=== PATIENT | female | born 1960 | race Caucasian/White ===

== ENCOUNTER 2017-06-26 08:50 | Inpatient (IN) | payer BC ==
[~2017-06-26] VITALS: Ht 167.6 cm; Wt 54.5 kg
[2017-06-26] VITALS (14 sets, daily range): BP systolic 112–190; BP diastolic 69–108; PULSE 60–75; RESP 16–20; TEMP 97.4–98.8; O2SAT 91–98
[2017-06-26 09:33] LABS: AUTOMATED NEUTROPHIL # 3.1 TH/MM3 (1.8-7.7); BASOPHIL # 0.1 TH/MM3 (0-0.2); BASOPHIL % 1.3 % (0.0-2.0); EOSINOPHIL # 0.3 TH/MM3 (0-0.4); EOSINOPHIL % 6.2 % (0.0-4.0); HEMOGLOBIN 14.7 GM/DL (11.6-15.3); LYMPH % 26.9 % (9.0-44.0); LYMPHOCYTE # 1.4 TH/MM3 (1.0-4.8); MEAN CELL VOLUME 94.5 FL (80.0-100.0); MEAN CORPUSCULAR HEMOGLOBIN 31.6 PG (27.0-34.0); MEAN CORPUSCULAR HGB CONC 33.4 % (32.0-36.0); MEAN PLATELET VOLUME 8.3 FL (7.0-11.0); MONO % 8.3 % (0.0-8.0); MONOCYTE # 0.4 TH/MM3 (0-0.9); NEUT % 57.3 % (16.0-70.0); PLATELET COUNT 231 TH/MM3 (150-450); RED BLOOD COUNT 4.66 MIL/MM3 (4.00-5.30); RED CELL DISTRIBUTION WIDTH 13.6 % (11.6-17.2); WHITE BLOOD COUNT 5.3 TH/MM3 (4.0-11.0)
[2017-06-26] MEDS ORDERED: LIDOCAINE 1%/EPINEPHrine 1:100,000 SOLN 20 ML VIAL ONE ×2 (09:41)
[2017-06-26 09:45] LABS: INTERNATIONAL NORMALIZED RATIO 0.9 RATIO; PROTHROMBIN TIME - PATIENT 9.8 SEC (9.8-11.6)
[2017-06-26] MEDS: SODIUM CHLOR 0.9% 1000 ML IV SCH ×2 (10:00)
[2017-06-26] MEDS ORDERED: MIDAZOLAM HCL 2 MG/2 ML VIAL ONE ×4 (10:07→15:25)
--- NOTE | 2017-06-26 11:16 | RADRPT ---
EXAM DATE/TIME: 06/26/2017 10:16 [facility] COMPARISON: No previous studies available for comparison. INDICATIONS : Right lung mass. SEDATION TIME: 30 minutes BIOPSY SITE: Right lung MEDICATION(S): 1.) 2 mg midazolam (Versed) IV 2.) 100 mcg fentanyl (Sublimaze) IV DEVICE(S): 1.) 20 gauge Temno core biopsy needle MEDICAL HISTORY : None. SURGICAL HISTORY : section. ENCOUNTER: Initial ACUITY: 1 day PAIN SCORE: 0/10 LOCATION: Right lung A total of one core specimen(s) were obtained and sent to the laboratory for pathologic evaluation. PROCEDURE: 1. CT guided lung biopsy. 2. Conscious sedation with continuous EKG and oximetry monitoring. 3. EKG and oximetry remained stable throughout the procedure. Prior to the procedure informed consent was obtained. Any appropriate prior imaging studies were rev iewed. Using automated exposure control and adjustment of the mA and/or kV according to patient size, radiation dose was kept as low as reasonably achievable to obtain optimal diagnostic quality images. DICOM format image data is available electronically for review and comparison. The site was prepped in a sterile fashion. Full sterile technique was used, including cap, mask, elieser rile gloves and gown and a large sterile sheet. Hand hygiene and 2% chlorhexidine and/or betadine/al cohol prep was utilized per protocol for cutaneous antisepsis. The skin and subcutaneous tissues wer e infiltrated with local anesthetic solution. With CT guidance the previously identified target was localized. Biopsy was performed using the presc ribed needle as above. Adequate hemostasis was obtained with compression at the puncture site. Follow-up CT scan reveals a small pneumothorax. Conscious sedation was performed with the prescribed dosages and duration as above in the presence of an independent trained radiology nurse to assist in the monitoring of the patient. EKG and oximetry remained stable throughout the procedure. The patient tolerated the procedure well and there were no complications. The patient was sent to Radiology Outpatient Unit in stable condition. CONCLUSION: Successful CT guided biopsy. Kashif Freitas MD on June 26, 2017 at 11:13 Board Certified Radiologist. This report was verified electronically.
--- NOTE | 2017-06-26 11:20 | RADRPT ---
EXAM DATE/TIME: 06/26/2017 10:06 [facility] COMPARISON: No previous studies available for comparison. INDICATIONS : Post right lung biopsy. Evaluate for pneumothorax. MEDICAL HISTORY : None. SURGICAL HISTORY : None. ENCOUNTER: Initial ACUITY: 1 day PAIN SCORE: 0/10 LOCATION: Right chest FINDINGS: There is a 1.5 cm right apical pneumothorax. Right mid lung field nodule is again noted laterally. The heart is normal. The lungs are otherwise clear. CONCLUSION: 1. A 1.5 cm right apical pneumothorax. 2. Right lateral mid lung field nodule. Kashif Freitas MD on June 26, 2017 at 11:11 Board Certified Radiologist. This report was verified electronically.
--- NOTE | 2017-06-26 13:02 | RADRPT ---
EXAM DATE/TIME: 06/26/2017 12:50 [facility] COMPARISON: CHEST EXPIRATION ONLY, June 26, 2017, 10:06. INDICATIONS : Post Lung Biopsy MEDICAL HISTORY : None. SURGICAL HISTORY : None. ENCOUNTER: Subsequent ACUITY: 1 day PAIN SCORE: 0/10 LOCATION: Bilateral chest FINDINGS: There is a persistent small stab le right apical pneumothorax measuring 15 mm. The heart is stable. The right lung nodule is stable. CONCLUSION: 1. Stable small right apical pneumothorax measuring 15 mm. Kashif Freitas MD on June 26, 2017 at 12:53 Board Certified Radiologist. This report was verified electronically.
--- NOTE | 2017-06-26 15:05 | RADRPT ---
EXAM DATE/TIME: 06/26/2017 14:36 [facility] COMPARISON: CT NEEDLE BIOPSY LUNG, RIGHT, June 26, 2017, 10:16. CHEST EXPIRATION ONLY, June 26, 2017, 12:5 0. INDICATIONS : Stat post lung biopsy right side. MEDICAL HISTORY : None. SURGICAL HISTORY : None. ENCOUNTER: Initial ACUITY: 1 day PAIN SCORE: 0/10 LOCATION: Right chest FINDINGS: 3.6 and the right pneumothorax. Left lung is clear. The heart and pulmonary vascularity are normal. The portion of the bony skeleton visualized is unremarkable. CONCLUSION: 3.6 and meter right pneumothorax. Kostas Avila MD FACR on June 26, 2017 at 15:02 Board Certified Radiologist. This report was verified electronically.
--- NOTE | 2017-06-26 16:02 | PD.RAD ---
Post Procedure Progress Note Pre Procedure Diagnosis: (1) Lung mass Post Procedure Diagnosis: (1) Lung mass Procedure Date: Jun 26, 2017 Supervising Radiologist: Ethan Cm Proceduralist/Assist: Arsalan Madden, RT(R), José Carter RT(R), Aura Guillen RT(R) Anesthesia: Conscious Sedation Plan of Activity Patient to Unit: Nursing Unit Patient Condition: Good See PACS Report for procedural detail/treatment Drainage Procedure Procedure 1 Imaging Guidance: Fluoroscopy Side: Right Procedure Type: Chest Tube Non-Tunneled Procedure: Placement Drainage: Pleurovac Ethan Cm MD Jun 26, 2017 16:02
--- NOTE | 2017-06-26 16:36 | RADRPT ---
EXAM DATE/TIME: 06/26/2017 15:25 [facility] COMPARISON: CHEST EXPIRATION ONLY, June 26, 2017, 16:11. INDICATIONS : Patient presents with right side pneumothorax in need of chest tube placement. MEDICAL HISTORY : Carcinoma of right breast Hx of smoking SURGICAL HISTORY : Right lung biopsy ENCOUNTER: Initial ACUITY: 1 day PAIN SCORE: 0/10 LOCATION: N/A FLUORO TIME: 0.8 minutes IMAGE SERIES: 0 SEDATION TIME: 30 minutes MEDICATION(S): 1.) 2 mg midazolam (Versed) IV 2.) 100 mcg fentanyl (Sublimaze) IV DEVICE(S): 1.) 10 [place] non-locking catheter 30CM GAYLE PROCEDURE : 1. Fluoroscopically guided chest tube placement. 2. Conscious sedation with continuous EKG and oximetry monitoring. The risks, benefits and alternatives to the procedure were explained and verbal and written consent w as obtained. The site was prepped in sterile fashion. Full sterile technique was used, including ca p, mask, sterile gloves and gown and a large sterile sheet. Hand hygiene and 2% chlorhexidine and/or betadine/alcohol prep was utilized per protocol for cutaneous antisepsis. The skin and subcutaneous tissues were infiltrated with local anesthetic solution. With fluoroscopic guidance the chest was punctured between the first and second interspace and the pr escribed catheter was placed in the lung apex. Wall suction was applied. Post procedure images demon strate satisfactory position of the tube. The catheter was sutured in place and a Percu-Stay was zoe lied. Conscious sedation was performed with the prescribed dosages and duration as above in the presence of an independent trained radiology nurse to assist in the monitoring of the patient. EKG and oximetry remained stable throughout the procedure. The patient tolerated the procedure well and there were n o complications. The patient was sent to post anesthesia recovery in stable condition. CONCLUSION: Uncomplicated chest tube placement as above. Ethan Cm MD on June 26, 2017 at 16:34 Board Certified Radiologist. This report was verified electronically.
--- NOTE | 2017-06-26 16:37 | RADRPT ---
EXAM DATE/TIME: 06/26/2017 16:11 [facility] COMPARISON: CHEST EXPIRATION ONLY, June 26, 2017, 14:36. INDICATIONS : Post chest tube placement. MEDICAL HISTORY : None. SURGICAL HISTORY : None. ENCOUNTER: Initial ACUITY: 1 day PAIN SCORE: 2/10 LOCATION: Right chest FINDINGS: Chest tube in good position right lung. There is no pneumothorax. Left lung is clear. CONCLUSION: Chest tube in good position without pneumothorax. Kostas Avila MD FACR on June 26, 2017 at 16:22 Board Certified Radiologist. This report was verified electronically.
[2017-06-27] VITALS (9 sets, daily range): BP systolic 118–159; BP diastolic 71–91; PULSE 61–69; RESP 16–20; TEMP 97.6–99.6; O2SAT 96–97
--- NOTE | 2017-06-27 09:14 | RADRPT ---
EXAM DATE/TIME: 06/27/2017 08:39 [place] Corrected on: June 27, 2017; Updated Report time [facility] COMPARISON: CHEST EXPIRATION ONLY, June 26, 2017, 14:36. CHEST EXPIRATION ONLY, June 26, 2017, 16:11. INDICATIONS : Evaluate for pneumothorax. MEDICAL HISTORY : None. SURGICAL HISTORY : None. ENCOUNTER: Subsequent ACUITY: 1 day PAIN SCORE: 0/10 LOCATION: Bilateral chest FINDINGS: Right chest drainage catheter remains projected in the right apex. There has been reaccumulation the right apical pneumothorax, now measuring 3.1 cm. Stable small opacity lateral right mid chest. Lef t lung is clear carotids normal size. Both hemidiaphragms well delineated. CONCLUSION: Reaccumulation of right apical pneumothorax with chest drainage catheter unchanged position of the ri ght apex. Jason Hamilton MD on June 27, 2017 at 9:10 Board Certified Radiologist. This report was verified electronically.
[2017-06-27] MEDS ORDERED: BISACODYL 10 MG SUPP RECTAL PRN ×2 (10:15)
[2017-06-27] MEDS ORDERED: SODIUM CHLORIDE 0.9% FLUSH 10 ML FLUSH IV FLUSH PRN ×2 (10:15)
[2017-06-27] MEDS ORDERED: SENNOSIDES 8.6 MG TAB PO PRN ×2 (10:15)
[2017-06-27] MEDS ORDERED: ONDANSETRON HCL 4 MG/2 ML VIAL IVP PRN ×2 (10:15)
[2017-06-27] MEDS ORDERED: NALOXONE HCL 0.4 MG/ML AMP IV PUSH PRN ×2 (10:15)
[2017-06-27] MEDS ORDERED: MAGNESIUM HYDROXIDE SUSP 30 ML CUP PO PRN ×2 (10:15)
[2017-06-27] MEDS ORDERED: ACETAMINOPHEN 325 MG TAB PO PRN ×2 (10:15)
[2017-06-27] MEDS ORDERED: LACTULOSE SYRUP 20 GM/30 ML CUP PO PRN ×2 (10:15)
[2017-06-27] MEDS: SODIUM CHLOR 0.9% 1000 ML IV SCH ×2 (11:00)
[2017-06-27 13:17] LABS: AUTOMATED NEUTROPHIL # 3.2 TH/MM3 (1.8-7.7); BASOPHIL # 0.1 TH/MM3 (0-0.2); BASOPHIL % 1.2 % (0.0-2.0); EOSINOPHIL # 0.3 TH/MM3 (0-0.4); HEMATOCRIT 43.7 % (35.0-46.0); HEMOGLOBIN 14.5 GM/DL (11.6-15.3); LYMPH % 26.3 % (9.0-44.0); LYMPHOCYTE # 1.4 TH/MM3 (1.0-4.8); MEAN CELL VOLUME 94.7 FL (80.0-100.0); MEAN CORPUSCULAR HEMOGLOBIN 31.5 PG (27.0-34.0); MEAN CORPUSCULAR HGB CONC 33.3 % (32.0-36.0); MEAN PLATELET VOLUME 8.6 FL (7.0-11.0); MONO % 7.5 % (0.0-8.0); MONOCYTE # 0.4 TH/MM3 (0-0.9); PLATELET COUNT 225 TH/MM3 (150-450); RED BLOOD COUNT 4.61 MIL/MM3 (4.00-5.30); RED CELL DISTRIBUTION WIDTH 13.4 % (11.6-17.2); WHITE BLOOD COUNT 5.3 TH/MM3 (4.0-11.0)
--- NOTE | 2017-06-27 13:25 | PD.CONS ---
HPI Service [facility] Hospitalists Consult Requested By David Patricia Reason for Consult Medical management Primary Care Physician Kostas Izaguirre DO Diagnoses: (1) Pneumothorax after biopsy (2) Lung mass History of Present Illness Written by Everett Basurto PA-C acting as scribe for Dr. Jamin Bacon on 06/27/17 at 13:24. Ms. Rodney is 57 yo, with history of breast cancer diagnosed in April,. She had no significant medical history. Ms. Rodney underwent lung biopsy on 06/26/17 and subsequently developed a pneumothorax of the right lung; a chest tube was placed. Pt was hospitalized and the hospitalist team was consulted. At time of interview, Pt was resting comfortably. She reported she was without chest pain, shortness of breath, or difficulty breathing. She denied fever, malaise,nausea, vomiting, diarrhea. She spoke of ambulating "to go to the bathroom" ("taking my tube with me"), and denied difficulty with bowel/bladder habits. Weight loss was also denied; she did say she had a decreased appetite "since I've been here." A 10 point ROS was conducted and,except as noted above was negative. Review of Systems Constitutional: DENIES: Diaphoretic episodes, Fatigue, Fever, Weight gain, Weight loss Ears, nose, mouth, throat: DENIES: Vertigo Respiratory: DENIES: Cough, Shortness of breath Cardiovascular: DENIES: Chest pain, Palpitations Gastrointestinal: DENIES: Abdominal pain, Black stools Musculoskeletal: DENIES: Joint pain, Muscle aches Hematologic/lymphatic: DENIES: Lymphadenopathy Neurologic: DENIES: Abnormal gait Psychiatric: DENIES: Anxiety, Confusion Except as stated in HPI: all other systems reviewed are Neg Past Family Social History Allergies: Coded Allergies: No Known Allergies (Verified Allergy, Unknown, 06/26/17) Past Medical History Pt denied having any significant medical history other than her recent diagnosis for breast cancer. Past Surgical History Pt endorsed having undergone (x2). Reported Medications Reported Meds & Active Scripts Active No Active Prescriptions or Reported Medications Active Ordered Medications Current Medications Medications (Trade) Dose Ordered Sig/Latrice Route Start Time Stop Time Status Last Admin Sodium Chloride 1,000 ml @ 30 mls/hr Q24H IV 06/26/17 11:00 06/26/17 10:00 (NS Flush) 2 ml UNSCH PRN IV FLUSH 06/27/17 10:15 (NS Flush) 2 ml BID IV FLUSH 06/27/17 21:00 (Tylenol) 650 mg Q4H PRN PO 06/27/17 10:15 (Zofran Inj) 4 mg Q6H PRN IVP 06/27/17 10:15 (Ambien) 5 mg HS PRN PO 06/27/17 21:00 (Narcan Inj) 0.4 mg UNSCH PRN IV PUSH 06/27/17 10:15 (Valarie-Colace) 1 tab BID PO 06/27/17 21:00 (Milk Of Magnesia Liq) 30 ml Q12H PRN PO 06/27/17 10:15 (Senokot) 17.2 mg Q12H PRN PO 06/27/17 10:15 (Dulcolax Supp) 10 mg DAILY PRN RECTAL 06/27/17 10:15 (Lactulose Liq) 30 ml DAILY PRN PO 06/27/17 10:15 Family History Pt stated she is adopted and is unaware of biological family health hisotry. Social History Pt stated she smoked 3/4-1 ppd from age 16 until "7 days ago"; 45 year pack history. Pt stated she drinks "a couple of beers a day" 5 days a week. She reported going "up to 6 months without having a drink." Pt denied having ever experienced withdrawal. Recreational/illicit drug use was denied. Physical Exam Vital Signs Vital Signs Date Time Temp Pulse Resp B/P (MAP) Pulse Ox O2 Delivery O2 Flow Rate FiO2 06/27/17 12:00 98.2 68 20 159/82 (107) 97 06/27/17 08:04 62 06/27/17 08:00 98.1 67 18 149/80 (103) 96 06/27/17 04:00 97.6 63 16 156/86 (109) 96 06/27/17 00:00 97.9 66 18 150/91 (110) 96 06/26/17 20:12 72 06/26/17 20:00 Room Air 06/26/17 20:00 98.8 73 16 148/83 (104) 97 06/26/17 18:42 97.4 70 20 153/86 (108) 98 06/26/17 17:00 60 16 131/79 (96) 96 06/26/17 16:30 69 18 128/83 (98) 93 06/26/17 16:15 97.5 71 18 128/83 (98) 94 06/26/17 14:15 70 18 119/69 (86) 95 Physical Exam GENERAL: This is a well-nourished, well-developed patient, in no apparent distress. SKIN: No rashes, ecchymoses or lesions. Cool and dry. HEAD: Atraumatic. Normocephalic. EYES: Pupils equal round and reactive. Extraocular motions intact. No scleral icterus. No injection or drainage. ENT: Nose without bleeding or purulent drainage. Airway patent. NECK: Trachea midline. No lymphadenopathy. Supple and nontender. CARDIOVASCULAR: Regular rate and rhythm without murmurs, gallops, or rubs. RESPIRATORY: Clear to auscultation. Breath sounds equal bilaterally. No wheezes , rales, or rhonchi. Chest tube present, right side. GASTROINTESTINAL: Abdomen soft, non-tender, nondistended. MUSCULOSKELETAL: Extremities without clubbing, cyanosis, or edema. NEUROLOGICAL: Awake and alert. Cranial nerves II through XII intact. Motor and sensory grossly within normal limits. Five out of 5 muscle strength in all muscle groups. Speech was clear and fluent. Laboratory Laboratory Tests Test 06/27/17 12:49 White Blood Count 5.3 Red Blood Count 4.61 Hemoglobin 14.5 Hematocrit 43.7 Mean Corpuscular Volume 94.7 Mean Corpuscular Hemoglobin 31.5 Mean Corpuscular Hemoglobin Concent 33.3 Red Cell Distribution Width 13.4 Platelet Count 225 Mean Platelet Volume 8.6 Neutrophils (%) (Auto) 60.0 Lymphocytes (%) (Auto) 26.3 Monocytes (%) (Auto) 7.5 Eosinophils (%) (Auto) 5.0 Basophils (%) (Auto) 1.2 Neutrophils # (Auto) 3.2 Lymphocytes # (Auto) 1.4 Monocytes # (Auto) 0.4 Eosinophils # (Auto) 0.3 Basophils # (Auto) 0.1 CBC Comment DIFF FINAL Differential Comment Result Diagram: 06/27/17 1249 Imaging Last Impressions Chest X-Ray 06/27/17 0000 Signed Impressions: Service Date/Time: Tuesday, June 27, 2017 08:39 - CONCLUSION: Reaccumulation of right apical pneumothorax with chest drainage catheter unchanged position of the right apex. Jason Hamilton MD Lung Biopsy CT 06/26/17 0925 Signed Impressions: Service Date/Time: Monday, June 26, 2017 10:16 - CONCLUSION: Successful CT guided biopsy. Kashif Freitas MD Chest Tube Insertion 06/26/17 0000 Signed Impressions: Service Date/Time: Monday, June 26, 2017 15:25 - CONCLUSION: Uncomplicated chest tube placement as above. Ethan Cm MD Assessment and Plan Problem List: (1) Pneumothorax after biopsy ICD Code: J95.811 - Postprocedural pneumothorax (2) Lung mass ICD Code: R91.8 - Other nonspecific abnormal finding of lung field Assessment and Plan Ms. Rodney is 57 yo, with history of breast cancer diagnosed in April,. She had no significant medical history. Ms. Rodney underwent lung biopsy on 06/26/17 and subsequently developed a pneumothorax of the right lung; a chest tube was placed. Pt was hospitalized and the hospitalist team was consulted. Pneumothorax after biopsy Lung Mass -Chest tube management per IR. -pain management PRN -CMP and CBC today -Follow-up labs in am Alcohol abuse -CIWA protocol Diet -Regular diet DVT prophylaxis -Ambulation as tolerated. -pharmacological anticoagulation therapy not initiated at this time due to recent chest tube placement. -SCD's This note was transcribed by moraima Basurto. I, Dr. Gustavo Bacon personally performed the history, physical exam, and medical decision making; and confirmed the accuracy of the information in the transcribed note. Authenticated by Dr. Gustavo Bacon on 06/27/17 at 13:26. Code Status Full code Discussed Condition With Patient Everett Basurto Jr. Jun 27, 2017 13:25 Gustavo Bacon MD Jun 27, 2017 13:27
[2017-06-27 13:44] LABS: ALBUMIN 3.2 GM/DL (3.4-5.0); AST (GOT) 17 U/L (15-37); BICARBONATE 27.4 MEQ/L (21.0-32.0); BLOOD UREA NITROGEN 14 MG/DL (7-18); CALCIUM 9.4 MG/DL (8.5-10.1); CHLORIDE 102 MEQ/L (98-107); CREATININE 0.72 MG/DL (0.50-1.00); GLOMERULAR FILTRATION RATE 83 ML/MIN (>89); SODIUM (NA) 136 MEQ/L (136-145)
[2017-06-27 13:45] LABS: GLUCOSE,RANDOM 93 MG/DL (74-106)
[2017-06-27 13:51] LABS: ALKALINE PHOSPHATASE 77 U/L (45-117); ALT (GPT) 18 U/L (10-53); TOTAL BILIRUBIN ADULT 0.4 MG/DL (0.2-1.0); TOTAL PROTEIN 7.3 GM/DL (6.4-8.2)
[2017-06-27] MEDS ORDERED: FLUMAZENIL 0.5 MG/5 ML VIAL IV PUSH PRN ×2 (14:45)
[2017-06-27] MEDS ORDERED: LORazepam 2 MG TAB PO PRN ×2 (14:45)
[2017-06-27] MEDS ORDERED: LORazepam 2 MG/ML VIAL IV PUSH PRN ×8 (14:45)
[2017-06-27] MEDS ORDERED: LORazepam 1 MG TAB PO PRN ×2 (14:45)
[2017-06-27] MEDS: SODIUM CHLORIDE 0.9% FLUSH 10 ML FLUSH IV FLUSH SCH ×2 (20:50)
[2017-06-27] MEDS: DOCUSATE SODIUM 50 MG/SENNA 8.6 MG TAB PO SCH ×2 (20:50)
[2017-06-27] MEDS ORDERED: ZOLPIDEM TARTRATE 5 MG TAB PO PRN ×2 (21:00)
[2017-06-28] VITALS (10 sets, daily range): BP systolic 110–133; BP diastolic 61–78; PULSE 61–74; RESP 16–20; TEMP 97.6–99.8; O2SAT 93–97
[2017-06-28] MEDS ORDERED: MS C15TA2 PO ×2 (06:37)
[2017-06-28] MEDS ORDERED: LORA-373 PO ×2 (06:37)
[2017-06-28] MEDS ORDERED: PROC10TA PO ×2 (06:37)
[2017-06-28] MEDS: DOCUSATE SODIUM 50 MG/SENNA 8.6 MG TAB PO SCH ×4 (08:15→21:00)
[2017-06-28] MEDS: SODIUM CHLORIDE 0.9% FLUSH 10 ML FLUSH IV FLUSH SCH ×4 (08:15→21:30)
[2017-06-28 08:46] LABS: BICARBONATE 25.1 MEQ/L (21.0-32.0); CALCIUM 9.1 MG/DL (8.5-10.1); CREATININE 0.62 MG/DL (0.50-1.00)
[2017-06-28] MEDS: SODIUM CHLOR 0.9% 1000 ML IV SCH ×2 (11:00)
--- NOTE | 2017-06-28 14:02 | HHI.PR ---
Subjective Remarks Follow-up pneumothorax. Denies chest pain and shortness of breath. Patient states she had chest CT. Discussed with RN Objective Vitals Vital Signs Date Time Temp Pulse Resp B/P (MAP) Pulse Ox O2 Delivery O2 Flow Rate FiO2 06/28/17 12:00 98.4 71 20 121/72 (88) 93 06/28/17 08:10 Room Air 06/28/17 08:00 98.7 61 18 133/77 (95) 96 06/28/17 04:00 98.7 64 16 114/71 (85) 95 06/28/17 00:00 99.8 64 16 120/69 (86) 95 06/27/17 20:53 61 06/27/17 20:45 Room Air 06/27/17 19:45 98.3 69 20 118/71 (87) 96 06/27/17 17:25 99.6 69 20 128/81 (97) 06/27/17 16:00 97.6 65 18 152/87 (108) 97 I/O 06/27/17 06/27/17 06/27/17 06/28/17 06/28/17 06/28/17 07:00 15:00 23:00 07:00 15:00 23:00 Output Total 10 ml 0 ml Balance -10 ml 0 ml Output Chest Tube Drainage Total 10 ml 0 ml # Voids 0 Result Diagram: 06/27/17 1249 06/28/17 0735 Imaging Last Impressions Chest X-Ray 06/27/17 0000 Signed Impressions: Service Date/Time: Tuesday, June 27, 2017 08:39 - CONCLUSION: Reaccumulation of right apical pneumothorax with chest drainage catheter unchanged position of the right apex. Jason Hamilton MD Lung Biopsy CT 06/26/17 0925 Signed Impressions: Service Date/Time: Monday, June 26, 2017 10:16 - CONCLUSION: Successful CT guided biopsy. Kashif Freitas MD Chest Tube Insertion 06/26/17 0000 Signed Impressions: Service Date/Time: Monday, June 26, 2017 15:25 - CONCLUSION: Uncomplicated chest tube placement as above. Ethan Cm MD Objective Remarks GENERAL: Well-developed, well-nourished in no distress SKIN: Warm and dry. HEAD: Atraumatic. Normocephalic. EYES: Pupils equal and round. No scleral icterus. No injection or drainage. ENT: No nasal bleeding or discharge. Mucous membranes pink and moist. NECK: Trachea midline. No JVD. CARDIOVASCULAR: Regular rate and rhythm. RESPIRATORY: No accessory muscle use. Clear to auscultation. Breath sounds equal bilaterally. Right chest tube in place GASTROINTESTINAL: Abdomen soft, non-tender, nondistended. MUSCULOSKELETAL: Extremities without clubbing, cyanosis, or edema. No obvious deformities. NEUROLOGICAL: Awake and alert. No obvious cranial nerve deficits. Motor grossly within normal limits. Five out of 5 muscle strength in the arms and legs. Normal speech. PSYCHIATRIC: Appropriate mood and affect; insight and judgment normal. Procedures Right lung mass biopsy with chest tube insertion secondary to pneumothorax A/P Problem List: (1) Pneumothorax after biopsy ICD Code: J95.811 - Postprocedural pneumothorax (2) Lung mass ICD Code: R91.8 - Other nonspecific abnormal finding of lung field Assessment and Plan Ms. Rodney is 57 yo, with history of breast cancer diagnosed in April,. She had no significant medical history. Ms. Rodney underwent lung biopsy on 06/26/17 and subsequently developed a pneumothorax of the right lung; a chest tube was placed. Pt was hospitalized and the hospitalist team was consulted. Pneumothorax after biopsy Lung Mass -Chest tube management per IR. -pain management PRN -Labs CBC and CMP reviewed unremarkable except for's mild hyponatremia. She is asymptomatic Alcohol abuse. Stable. Counseled -[facility] protocol Diet -Regular diet DVT prophylaxis -Ambulation as tolerated. -SCD's Discharge Planning Discharge when chest tube removed. Patient aware not to fly in an airplane or ride in a submarine until cleared by physician secondary to recent pneumothorax Gustavo Bacon MD Jun 28, 2017 14:02
--- NOTE | 2017-06-28 16:22 | RADRPT ---
EXAM DATE/TIME: 06/28/2017 10:40 [facility] COMPARISON: No previous studies available for comparison. INDICATIONS : Evaluate pneumothorax RADIATION DOSE: 3.41 CTDIvol (mGy) MEDICAL HISTORY : None SURGICAL HISTORY : section. ENCOUNTER: Subsequent ACUITY: 3 days PAIN SCALE: 0/10 LOCATION: Right chest TECHNIQUE: Volumetric scanning of the chest was performed. Using automated exposure control and adjustment of t he mA and/or kV according to patient size, radiation dose was kept as low as reasonably achievable to obtain optimal diagnostic quality images. DICOM format image data is available electronically for r eview and comparison. Follow-up recommendations for detected pulmonary nodules are based at a minimum on nodule size and pa tient risk factors according to Fleischner Society Guidelines. FINDINGS: LUNGS: There is no pneumothorax with chest tube in good position. There is minimal subcutaneous is emphysem a present. Scattered multiple nodules are again seen in both lungs. There is no axillary adenopathy. There is minimal nonspecific mediastinal adenopathy. 2 cm sof t tissue mass is present medially left breast. The portion of the liver or spleen identified are free of focal defects. \ CONCLUSION: Minimal subcutaneous emphysema, no pneumothorax. Stable bilateral parenchymal nodules. Kostas Avila MD FACR on June 28, 2017 at 16:18 Board Certified Radiologist. This report was verified electronically.
--- NOTE | 2017-06-28 16:46 | HHI.DCPOC ---
Discharge Care Plan Diagnosis: (1) Pneumothorax after biopsy (2) Lung mass Your Health Problems Are: Difficulty with ADL Exercise Tolerance Goals to Promote Your Health * To prevent worsening of your condition and complications * To maintain your health at the optimal level Directions to Meet Your Goals Take your medications as prescribed Follow your dietary instruction Follow activity as directed Keep your appointments as scheduled Take your immunizations and boosters as scheduled If your symptoms worsen call your PCP, if no PCP go to Urgent Care Center or Emergency Room Smoking is Dangerous to Your Health. Avoid second hand smoke Call the 24-hour hour crisis hotline for domestic abuse at Gustavo Bacon MD Jun 28, 2017 16:46
--- NOTE | 2017-06-28 16:46 | HHI.DCPOC ---
Discharge Care Plan Diagnosis: (1) Pneumothorax after biopsy (2) Lung mass Your Health Problems Are: Difficulty with ADL Exercise Tolerance Goals to Promote Your Health * To prevent worsening of your condition and complications * To maintain your health at the optimal level Directions to Meet Your Goals Take your medications as prescribed Follow your dietary instruction Follow activity as directed Keep your appointments as scheduled Take your immunizations and boosters as scheduled If your symptoms worsen call your PCP, if no PCP go to Urgent Care Center or Emergency Room Smoking is Dangerous to Your Health. Avoid second hand smoke Call the 24-hour hour crisis hotline for domestic abuse at Gustavo Bacon MD Jun 28, 2017 16:46
--- NOTE | 2017-06-28 16:46 | HHI.DCPOC ---
Discharge Care Plan Diagnosis: (1) Pneumothorax after biopsy (2) Lung mass Your Health Problems Are: Difficulty with ADL Exercise Tolerance Goals to Promote Your Health * To prevent worsening of your condition and complications * To maintain your health at the optimal level Directions to Meet Your Goals Take your medications as prescribed Follow your dietary instruction Follow activity as directed Keep your appointments as scheduled Take your immunizations and boosters as scheduled If your symptoms worsen call your PCP, if no PCP go to Urgent Care Center or Emergency Room Smoking is Dangerous to Your Health. Avoid second hand smoke Call the 24-hour hour crisis hotline for domestic abuse at Gustavo Bacon MD Jun 28, 2017 16:46
[2017-06-28] MEDS: MORPHINE SULFATE 15 MG CONTROLLED RELEASE TAB PO SCH ×2 (21:00)
[2017-06-29] VITALS (8 sets, daily range): BP systolic 115–139; BP diastolic 61–86; PULSE 63–80; RESP 16–19; TEMP 97.3–98.8; O2SAT 94–98
[2017-06-29] MEDS: DOCUSATE SODIUM 50 MG/SENNA 8.6 MG TAB PO SCH ×4 (09:00→20:27)
[2017-06-29] MEDS: MORPHINE SULFATE 15 MG CONTROLLED RELEASE TAB PO SCH ×4 (09:00→20:26)
--- NOTE | 2017-06-29 09:43 | HHI.PR ---
Subjective Remarks in no acute distress. denies sob or chest pain. chest tube in place. otherwise no other new complaints. Objective Vitals Vital Signs Date Time Temp Pulse Resp B/P (MAP) Pulse Ox O2 Delivery O2 Flow Rate FiO2 06/29/17 08:34 98.8 80 17 96 06/29/17 07:57 Room Air 06/29/17 04:30 97.3 63 16 115/61 (79) 95 06/28/17 23:35 97.7 66 16 110/61 (77) 96 06/28/17 20:00 Room Air 06/28/17 20:00 69 06/28/17 19:30 98.1 67 18 113/64 (80) 95 06/28/17 17:46 62 06/28/17 16:45 97.7 70 20 127/67 (87) 96 06/28/17 16:00 97.6 74 20 127/78 (94) 97 06/28/17 12:00 98.4 71 20 121/72 (88) 93 I/O 06/28/17 06/28/17 06/28/17 06/29/17 06/29/17 06/29/17 07:00 15:00 23:00 07:00 15:00 23:00 Intake Total 480 ml 480 ml Output Total 0 ml 6 ml Balance 0 ml 474 ml 480 ml Intake Oral 480 ml 480 ml Output Chest Tube Drainage Total 0 ml 6 ml # Voids 3 3 # Bowel Movements 0 0 Result Diagram: 06/27/17 1249 06/28/17 0735 Imaging Last Impressions Chest CT 06/28/17 0000 Signed Impressions: Service Date/Time: Wednesday, June 28, 2017 10:40 - CONCLUSION: Minimal subcutaneous emphysema, no pneumothorax. Stable bilateral parenchymal nodules. Kostas Avila MD FACR Chest X-Ray 06/27/17 0000 Signed Impressions: Service Date/Time: Tuesday, June 27, 2017 08:39 - CONCLUSION: Reaccumulation of right apical pneumothorax with chest drainage catheter unchanged position of the right apex. Jason Hamilton MD Lung Biopsy CT 06/26/17 0925 Signed Impressions: Service Date/Time: Monday, June 26, 2017 10:16 - CONCLUSION: Successful CT guided biopsy. Kashif Freitas MD Chest Tube Insertion 06/26/17 0000 Signed Impressions: Service Date/Time: Monday, June 26, 2017 15:25 - CONCLUSION: Uncomplicated chest tube placement as above. Ethan Cm MD Objective Remarks GENERAL: This is a well-nourished, well-developed patient, in no apparent distress. CARDIOVASCULAR: Regular rate and regular rhythm without murmurs, gallops, or rubs. RESPIRATORY: Clear to auscultation. Breath sounds equal bilaterally. No wheezes , rales, or rhonchi. chest tube in place. GASTROINTESTINAL: Abdomen soft, non-tender, nondistended. Normal, active bowel sounds MUSCULOSKELETAL: Extremities without clubbing, cyanosis, or edema. NEURO: Alert & Oriented x4 to person, place, time, situation. Moves all ext x4 Procedures Right lung mass biopsy with chest tube insertion secondary to pneumothorax Medications and IVs Current Medications Lidocaine/ Epinephrine (Xylocaine-Epi 1%-1:100,000 Inj) 20 ml STK-MED ONCE .ROUTE Last administered on 06/26/17 09:41; Start 06/26/17 at 09:41; Stop 06/26/17 at 09:42; Status DC Fentanyl Citrate (fentaNYL INJ) 200 mcg STK-MED ONCE .ROUTE Last administered on 06/26/17 10:15; Start 06/26/17 at 10:07; Stop 06/26/17 at 10:08; Status DC Midazolam HCl (Versed Inj) 4 mg STK-MED ONCE .ROUTE Last administered on 10:15; Start 06/26/17 at 10:07; Stop 06/26/17 at 10:08; Status DC Sodium Chloride 1,000 ml @ 30 mls/hr Q24H IV Last administered on 06/26/17 10:00; Start 06/26/17 at 11:00 Fentanyl Citrate (fentaNYL INJ) 100 mcg STK-MED ONCE .ROUTE Last administered on 06/26/17 15:25; Start 06/26/17 at 15:25; Stop 06/26/17 at 15:26; Status DC Midazolam HCl (Versed Inj) 2 mg STK-MED ONCE .ROUTE Last administered on 15:25; Start 06/26/17 at 15:25; Stop 06/26/17 at 15:26; Status DC Sodium Chloride (NS Flush) 2 ml UNSCH PRN IV FLUSH FLUSH AFTER USING IV ACCESS ; Start 06/27/17 at 10:15 Sodium Chloride (NS Flush) 2 ml BID IV FLUSH Last administered on 06/28/17t 21: 30; Start 06/27/17 at 21:00 Acetaminophen (Tylenol) 650 mg Q4H PRN PO TEMP > 100.4, pain 1-10; Start 06/27 at 10:15 Ondansetron HCl (Zofran Inj) 4 mg Q6H PRN IVP NAUSEA OR VOMITING; Start at 10:15 Zolpidem Tartrate (Ambien) 5 mg HS PRN PO INSOMNIA; Start 06/27/17 at 21:00 Naloxone HCl (Narcan Inj) 0.4 mg UNSCH PRN IV PUSH SEE LABEL COMMENTS; Start 06/27/17 at 10:15 Senna/Docusate Sodium (Valarie-Colace) 1 tab BID PO ; Start 06/27/17 at 21:00 Magnesium Hydroxide (Milk Of Magnesia Liq) 30 ml Q12H PRN PO Mild constipation ; Start 06/27/17 at 10:15 Sennosides (Senokot) 17.2 mg Q12H PRN PO Moderate constipation; Start at 10:15 Bisacodyl (Dulcolax Supp) 10 mg DAILY PRN RECTAL SEVERE CONSITIPATION; Start 06/27/17 at 10:15 Lactulose (Lactulose Liq) 30 ml DAILY PRN PO SEVERE CONSITIPATION; Start 06/27 at 10:15 Flumazenil (Romazicon Inj) 0.2 mg Q1M PRN IV PUSH SEE LABEL COMMENTS; Start at 14:45 Lorazepam (Ativan) 1 mg Q4H PRN PO CIWA 8 - 10; Start 06/27/17 at 14:45 Lorazepam (Ativan Inj) 1 mg Q4H PRN IV PUSH CIWA 8 - 10; Start 06/27/17 at 14: 45 Lorazepam (Ativan) 2 mg Q2H PRN PO CIWA 11-14; Start 06/27/17 at 14:45 Lorazepam (Ativan Inj) 2 mg Q2H PRN IV PUSH CIWA 11-14; Start 10/31/17 at 14: 45 Lorazepam (Ativan Inj) 2 mg Q1H PRN IV PUSH CIWA 15-20; Start 06/27/17 at 14: 45 Lorazepam (Ativan Inj) 2 mg Q15M PRN IV PUSH CIWA > 20; Start 06/27/17 at 14: 45 Morphine Sulfate (Oramorph Sr) 15 mg BID PO ; Start 06/28/17 at 21:00 A/P Problem List: (1) Pneumothorax after biopsy ICD Code: J95.811 - Postprocedural pneumothorax (2) Lung mass ICD Code: R91.8 - Other nonspecific abnormal finding of lung field Assessment and Plan A/P Pneumothorax after biopsy chest tube management per IR lung adenocarcinoma she says that she already has an appointment with . oncology was notified about the result of the biopsy- likely will be evaluated as outpatient. this was d/w the patient. Alcohol abuse. Stable. Counseled -[facility] protocol Diet -Regular diet DVT prophylaxis -Ambulation as tolerated. -SCD's Discharge Planning dc home when chest tube has been removed and cleared by IR. f/u; pcp and oncology. see med list. d/w the patient and oncology. Jg Pimentel MD Jun 29, 2017 09:43
[2017-06-29] MEDS: SODIUM CHLORIDE 0.9% FLUSH 10 ML FLUSH IV FLUSH SCH ×4 (10:01→20:26)
[2017-06-29] MEDS: SODIUM CHLOR 0.9% 1000 ML IV SCH ×2 (11:00)
--- NOTE | 2017-06-29 11:43 | RADRPT ---
EXAM DATE/TIME: 06/29/2017 11:10 [facility] COMPARISON: CHEST EXPIRATION ONLY, June 27, 2017, 8:39. CT THORAX W/O CONTRAST, June 28, 2017, 10:40. INDICATIONS : Pneumothorax. MEDICAL HISTORY : None. SURGICAL HISTORY : section. Right chest tube. ENCOUNTER: Subsequent ACUITY: 4 - 6 days PAIN SCORE: 0/10 LOCATION: Bilateral chest FINDINGS: A single view of the chest demonstrates a persistent right pneumothorax with 3.1 cm of separation at the apex. The right chest tube remains in place and in good position in the right apex. The left lung is clear. The right lung is grossly clear. No pleural effusions. Heart size is stable. CONCLUSION: Persistent right apical pneumothorax with 3.1 cm of separation. No significant change compared to the prior chest x-ray. Jorge Luis Lewis MD on June 29, 2017 at 11:41 Board Certified Radiologist. This report was verified electronically.
[2017-06-29] MEDS ORDERED: MIDAZOLAM HCL 2 MG/2 ML VIAL ONE ×2 (15:04)
--- NOTE | 2017-06-29 15:23 | PD.RAD ---
Post Procedure Progress Note Pre Procedure Diagnosis: (1) Pneumothorax after biopsy Post Procedure Diagnosis: (1) Pneumothorax after biopsy Procedure Date: Jun 29, 2017 Supervising Radiologist: Ethan Cm Proceduralist/Assist: Milagro Mehta, RT(R)(), Arsalan Madden, RT(R), Aura Guillen, RT(R) Anesthesia: Conscious Sedation Plan of Activity Patient to Unit: Nursing Unit Patient Condition: Good See PACS Report for procedural detail/treatment Drainage Procedure Procedure 1 Imaging Guidance: Fluoroscopy Side: Right Procedure Type: Chest Tube Non-Tunneled Procedure: Exchange (10 armenian to 16 armenian) Ethan Cm MD Jun 29, 2017 15:23
--- NOTE | 2017-06-29 15:23 | PD.RAD ---
Post Procedure Progress Note Pre Procedure Diagnosis: (1) Pneumothorax after biopsy Post Procedure Diagnosis: (1) Pneumothorax after biopsy Procedure Date: Jun 29, 2017 Supervising Radiologist: Ethan Cm Proceduralist/Assist: Milagro Mehta, RT(R)(), Arsalan Madden, RT(R), Aura Guillen, RT(R) Anesthesia: Conscious Sedation Plan of Activity Patient to Unit: Nursing Unit Patient Condition: Good See PACS Report for procedural detail/treatment Drainage Procedure Procedure 1 Imaging Guidance: Fluoroscopy Side: Right Procedure Type: Chest Tube Non-Tunneled Procedure: Exchange (10 hungarian to 16 hungarian) Ethan Cm MD Jun 29, 2017 15:23
--- NOTE | 2017-06-29 15:23 | PD.RAD ---
Post Procedure Progress Note Pre Procedure Diagnosis: (1) Pneumothorax after biopsy Post Procedure Diagnosis: (1) Pneumothorax after biopsy Procedure Date: Jun 29, 2017 Supervising Radiologist: Ethan Cm Proceduralist/Assist: Milagro Mehta, RT(R)(), Arsalan Madden, RT(R), Aura Guillen, RT(R) Anesthesia: Conscious Sedation Plan of Activity Patient to Unit: Nursing Unit Patient Condition: Good See PACS Report for procedural detail/treatment Drainage Procedure Procedure 1 Imaging Guidance: Fluoroscopy Side: Right Procedure Type: Chest Tube Non-Tunneled Procedure: Exchange (10 american to 16 american) Ethan Cm MD Jun 29, 2017 15:23
--- NOTE | 2017-06-29 16:14 | RADRPT ---
EXAM DATE/TIME: 06/29/2017 15:47 [facility] COMPARISON: CHEST EXPIRATION ONLY, June 27, 2017, 8:39. INDICATIONS : Post chest tube placement MEDICAL HISTORY : Pneumothorax SURGICAL HISTORY : section. Right chest tube. ENCOUNTER: Subsequent ACUITY: 4 - 6 days PAIN SCORE: 0/10 LOCATION: chest FINDINGS: The previously noted right apical pneumothorax appears to have resolved. There is a larger right-side d chest tube currently in place positioned at the right apex. The lung ibanez are grossly clear. Ther e are no pleural effusions. The heart size is stable. CONCLUSION: No evidence of pneumothorax. Jorge Luis Lewis MD on June 29, 2017 at 16:11 Board Certified Radiologist. This report was verified electronically.
--- NOTE | 2017-06-29 16:16 | RADRPT ---
EXAM DATE/TIME: 06/29/2017 15:21 [facility] COMPARISON: No previous studies available for comparison. INDICATIONS : Patient with a history of right pneumothorax, needs chest tube evaluated. MEDICAL HISTORY : Carcinoma of right breast Hx of smoking SURGICAL HISTORY : Right lung biopsy ENCOUNTER: Subsequent ACUITY: 4 - 6 days PAIN SCORE: 5/10 LOCATION: Right chest FLUORO TIME: 1.59 minutes IMAGE SERIES: 1 SEDATION TIME: 15 minutes MEDICATION(S): 1.) 1 mg midazolam (Versed) IV 2.) 100 mcg fentanyl (Sublimaze) IV DEVICE(S): 1.) 16 [place] Islander non-locking catheter Expel PROCEDURE : 1. Fluoroscopically guided chest tube exchange. 2. Conscious sedation with continuous EKG and oximetry monitoring. The risks, benefits and alternatives to the procedure were explained and verbal and written consent w as obtained. The site was prepped in sterile fashion. Full sterile technique was used, including ca p, mask, sterile gloves and gown and a large sterile sheet. Hand hygiene and 2% chlorhexidine and/or betadine/alcohol prep was utilized per protocol for cutaneous antisepsis. The skin and subcutaneous tissues were infiltrated with local anesthetic solution. With fluoroscopic guidance the previously placed chest tube was exchanged for the prescribed catheter . Post procedure imaging demonstrates satisfactory position of the tube. The catheter was sutured i n place and a Percu-Stay was applied. Conscious sedation was performed with the prescribed dosages and duration as above in the presence of an independent trained radiology nurse to assist in the monitoring of the patient. EKG and oximetry remained stable throughout the procedure. The patient tolerated the procedure well and there were no complications. The patient was sent to post anesthesia recovery in stable condition. CONCLUSION: Uncomplicated chest tube exchange as above. Ethan Cm MD on June 29, 2017 at 16:13 Board Certified Radiologist. This report was verified electronically.
[2017-06-30] VITALS (7 sets, daily range): BP systolic 128–140; BP diastolic 70–78; PULSE 60–78; RESP 16–20; TEMP 97.9–98.6; O2SAT 96–98
[2017-06-30] MEDS: MORPHINE SULFATE 15 MG CONTROLLED RELEASE TAB PO SCH ×4 (09:00→19:43)
[2017-06-30] MEDS: DOCUSATE SODIUM 50 MG/SENNA 8.6 MG TAB PO SCH ×6 (09:00→19:43)
--- NOTE | 2017-06-30 09:14 | RADRPT ---
EXAM DATE/TIME: 06/30/2017 07:49 [facility] COMPARISON: CHEST EXPIRATION ONLY, June 29, 2017, 15:47. INDICATIONS : Shortness of breath. MEDICAL HISTORY : Pneumothorax. SURGICAL HISTORY : section. Right chest tube. ENCOUNTER: Initial ACUITY: 1 week PAIN SCORE: 0/10 LOCATION: Bilateral chest FINDINGS: A right-sided chest tube is again noted with its tip in the right apex. There is no recurrent pneumo thorax. Some residual subcutaneous emphysema is noted within the right chest wall. The right mid ibis ng field pulmonary nodule is stable. The heart is stable. No focal infiltrate is noted. CONCLUSION: 1. No recurrent pneumothorax on the right. 2. Some residual subcutaneous emphysema within the right chest wall. Kashif Freitas MD on June 30, 2017 at 9:07 Board Certified Radiologist. This report was verified electronically.
[2017-06-30] MEDS: SODIUM CHLORIDE 0.9% FLUSH 10 ML FLUSH IV FLUSH SCH ×4 (09:36→21:39)
--- NOTE | 2017-06-30 09:56 | HHI.PR ---
Subjective Remarks resting comfortably with no distress. chest tube in place. no chest pain or sob. no new complaints. Objective Vitals Vital Signs Date Time Temp Pulse Resp B/P (MAP) Pulse Ox O2 Delivery O2 Flow Rate FiO2 06/30/17 07:30 98.2 65 20 134/74 (94) 96 06/30/17 04:52 97.9 60 16 136/78 (97) 97 06/29/17 23:50 97.7 65 16 127/73 (91) 98 06/29/17 21:00 69 06/29/17 21:00 97.7 69 16 125/65 (85) 96 06/29/17 19:30 Room Air 06/29/17 18:31 Room Air 06/29/17 16:07 71 19 123/64 (83) 94 06/29/17 15:37 98.4 78 17 125/86 (99) 94 06/29/17 12:37 Room Air 06/29/17 09:59 65 I/O 06/29/17 06/29/17 06/29/17 06/30/17 06/30/17 06/30/17 07:00 15:00 23:00 07:00 15:00 23:00 Intake Total 480 ml 360 ml 240 ml Balance 480 ml 360 ml 240 ml Intake Oral 480 ml 360 ml 240 ml # Voids 3 3 1 # Bowel Movements 0 1 0 Result Diagram: 06/27/17 1249 06/28/17 0735 Imaging Last Impressions Chest Tube Change 06/29/17 1419 Signed Impressions: Service Date/Time: June 15:21 - CONCLUSION: Uncomplicated chest tube exchange as above. Ethan Cm MD Chest X-Ray 06/29/17 1100 Signed Impressions: Service Date/Time: June 11:10 - CONCLUSION: Persistent right apical pneumothorax with 3.1 cm of separation. No significant change compared to the prior chest x-ray. Jorge Luis Lewis MD Chest CT 06/28/17 0000 Signed Impressions: Service Date/Time: Wednesday, June 28, 2017 10:40 - CONCLUSION: Minimal subcutaneous emphysema, no pneumothorax. Stable bilateral parenchymal nodules. Kostas Avila MD FACR Lung Biopsy CT 06/26/17 0925 Signed Impressions: Service Date/Time: Monday, June 26, 2017 10:16 - CONCLUSION: Successful CT guided biopsy. Kashif Freitas MD Chest Tube Insertion 06/26/17 0000 Signed Impressions: Service Date/Time: Monday, June 26, 2017 15:25 - CONCLUSION: Uncomplicated chest tube placement as above. Ethan Cm MD Objective Remarks GENERAL: This is a well-nourished, well-developed patient, in no apparent distress. CARDIOVASCULAR: Regular rate and regular rhythm without murmurs, gallops, or rubs. RESPIRATORY: Clear to auscultation. Breath sounds equal bilaterally. No wheezes , rales, or rhonchi. chest tube in place. GASTROINTESTINAL: Abdomen soft, non-tender, nondistended. Normal, active bowel sounds MUSCULOSKELETAL: Extremities without clubbing, cyanosis, or edema. NEURO: Alert & Oriented x4 to person, place, time, situation. Moves all ext x4 Procedures Right lung mass biopsy with chest tube insertion/exchange secondary to pneumothorax Medications and IVs Current Medications Lidocaine/ Epinephrine (Xylocaine-Epi 1%-1:100,000 Inj) 20 ml STK-MED ONCE .ROUTE Last administered on 06/26/17 09:41; Start 06/26/17 at 09:41; Stop 06/26/17 at 09:42; Status DC Fentanyl Citrate (fentaNYL INJ) 200 mcg STK-MED ONCE .ROUTE Last administered on 06/26/17 10:15; Start 06/26/17 at 10:07; Stop 06/26/17 at 10:08; Status DC Midazolam HCl (Versed Inj) 4 mg STK-MED ONCE .ROUTE Last administered on 10:15; Start 06/26/17 at 10:07; Stop 06/26/17 at 10:08; Status DC Sodium Chloride 1,000 ml @ 30 mls/hr Q24H IV Last administered on 06/26/17 10:00; Start 06/26/17 at 11:00 Fentanyl Citrate (fentaNYL INJ) 100 mcg STK-MED ONCE .ROUTE Last administered on 06/26/17 15:25; Start 06/26/17 at 15:25; Stop 06/26/17 at 15:26; Status DC Midazolam HCl (Versed Inj) 2 mg STK-MED ONCE .ROUTE Last administered on 10/30/ 17at 15:25; Start 06/26/17 at 15:25; Stop 06/26/17 at 15:26; Status DC Sodium Chloride (NS Flush) 2 ml UNSCH PRN IV FLUSH FLUSH AFTER USING IV ACCESS ; Start 06/27/17 at 10:15 Sodium Chloride (NS Flush) 2 ml BID IV FLUSH Last administered on 06/30/17t 09: 36; Start 06/27/17 at 21:00 Acetaminophen (Tylenol) 650 mg Q4H PRN PO TEMP > 100.4, pain 1-10; Start 06/27 at 10:15 Ondansetron HCl (Zofran Inj) 4 mg Q6H PRN IVP NAUSEA OR VOMITING; Start at 10:15 Zolpidem Tartrate (Ambien) 5 mg HS PRN PO INSOMNIA; Start 06/27/17 at 21:00 Naloxone HCl (Narcan Inj) 0.4 mg UNSCH PRN IV PUSH SEE LABEL COMMENTS; Start 06/27/17 at 10:15 Senna/Docusate Sodium (Valarie-Colace) 1 tab BID PO ; Start 06/27/17 at 21:00 Magnesium Hydroxide (Milk Of Magnesia Liq) 30 ml Q12H PRN PO Mild constipation ; Start 06/27/17 at 10:15 Sennosides (Senokot) 17.2 mg Q12H PRN PO Moderate constipation; Start at 10:15 Bisacodyl (Dulcolax Supp) 10 mg DAILY PRN RECTAL SEVERE CONSITIPATION; Start 06/27/17 at 10:15 Lactulose (Lactulose Liq) 30 ml DAILY PRN PO SEVERE CONSITIPATION; Start 06/27 at 10:15 Flumazenil (Romazicon Inj) 0.2 mg Q1M PRN IV PUSH SEE LABEL COMMENTS; Start at 14:45 Lorazepam (Ativan) 1 mg Q4H PRN PO CIWA 8 - 10; Start 06/27/17 at 14:45 Lorazepam (Ativan Inj) 1 mg Q4H PRN IV PUSH CIWA 8 - 10; Start 06/27/17 at 14: 45 Lorazepam (Ativan) 2 mg Q2H PRN PO CIWA 11-14; Start 06/27/17 at 14:45 Lorazepam (Ativan Inj) 2 mg Q2H PRN IV PUSH CIWA 11-14; Start 06/27/17 at 14: 45 Lorazepam (Ativan Inj) 2 mg Q1H PRN IV PUSH CIWA 15-20; Start 06/27/17 at 14: 45 Lorazepam (Ativan Inj) 2 mg Q15M PRN IV PUSH CIWA > 20; Start 06/27/17 at 14: 45 Morphine Sulfate (Oramorph Sr) 15 mg BID PO ; Start 06/28/17 at 21:00 Fentanyl Citrate (fentaNYL INJ) 100 mcg STK-MED ONCE .ROUTE Last administered on 06/29/17 14:27; Start 06/29/17 at 14:27; Stop 06/29/17 at 14:28; Status DC Midazolam HCl (Versed Inj) 2 mg STK-MED ONCE .ROUTE Last administered on 15:04; Start 06/29/17 at 15:04; Stop 06/29/17 at 15:05; Status DC A/P Problem List: (1) Pneumothorax after biopsy ICD Code: J95.811 - Postprocedural pneumothorax (2) Lung mass ICD Code: R91.8 - Other nonspecific abnormal finding of lung field Assessment and Plan A/P Pneumothorax after biopsy chest tube management per IR- lung adenocarcinoma she says that she already has an appointment with . oncology was notified about the result of the biopsy- likely will be evaluated as outpatient. this was d/w the patient. Alcohol abuse. Stable. Counseled -[facility] protocol Diet -Regular diet DVT prophylaxis -Ambulation as tolerated. -SCD's Discharge Planning dc home when chest tube has been removed and cleared by IR. f/u; pcp and oncology. see med list. d/w the patient and oncology. Jg Pimentel MD Jun 30, 2017 09:56
[2017-06-30] MEDS: SODIUM CHLOR 0.9% 1000 ML IV SCH ×2 (11:00)
--- NOTE | 2017-06-30 17:36 | RADRPT ---
EXAM DATE/TIME: 06/30/2017 16:18 [facility] COMPARISON: CHEST EXPIRATION ONLY, June 30, 2017, 7:49. CHEST SINGLE AP, June 29, 2017, 11:10. INDICATIONS : Evaluate for pneumothorax. MEDICAL HISTORY : None. SURGICAL HISTORY : None. ENCOUNTER: Initial ACUITY: 1 day PAIN SCORE: 6/10 LOCATION: Bilateral chest FINDINGS: The cardiac silhouette is normal in transverse diameter. There is a 4 cm pneumothorax at the right ap ex with some cutaneous emphysema in the right axilla. This is with the chest tube clamped and the tub e should be unclamped. CONCLUSION: 1. Recurrent right apical pneumothorax Ethan Cm MD on June 30, 2017 at 17:32 Board Certified Radiologist. This report was verified electronically.
[2017-07-01] VITALS (8 sets, daily range): BP systolic 122–161; BP diastolic 70–91; PULSE 62–89; RESP 16–19; TEMP 97.2–98.5; O2SAT 94–98
[2017-07-01] MEDS: SODIUM CHLORIDE 0.9% FLUSH 10 ML FLUSH IV FLUSH SCH ×4 (09:00→21:03)
[2017-07-01] MEDS: DOCUSATE SODIUM 50 MG/SENNA 8.6 MG TAB PO SCH ×4 (09:00→21:00)
[2017-07-01] MEDS: MORPHINE SULFATE 15 MG CONTROLLED RELEASE TAB PO SCH ×4 (09:00→21:00)
--- NOTE | 2017-07-01 09:55 | HHI.PR ---
Subjective Remarks in no acute distress. denies pain. no new complaints. Objective Vitals Vital Signs Date Time Temp Pulse Resp B/P (MAP) Pulse Ox O2 Delivery O2 Flow Rate FiO2 07/01/17 04:27 98.2 69 16 128/81 (97) 97 07/01/17 00:00 Room Air 07/01/17 00:00 98.0 71 16 122/70 (87) 98 06/30/17 21:30 97.9 78 16 140/76 (97) 97 06/30/17 21:30 Room Air 06/30/17 20:43 73 06/30/17 16:05 98.6 70 18 128/71 (90) 97 06/30/17 11:57 98.3 70 18 128/70 (89) 98 I/O 06/30/17 06/30/17 06/30/17 07/01/17 07/01/17 07/01/17 07:00 15:00 23:00 07:00 15:00 23:00 Intake Total 240 ml 480 ml 480 ml Balance 240 ml 480 ml 480 ml Intake Oral 240 ml 480 ml 480 ml # Voids 1 4 2 # Bowel Movements 0 1 1 Result Diagram: 06/27/17 1249 06/28/17 0735 Imaging Last Impressions Chest X-Ray 06/30/17 0000 Signed Impressions: Service Date/Time: Friday, June 30, 2017 16:18 - CONCLUSION: 1. Recurrent right apical pneumothorax Ethan Cm MD Chest Tube Change 06/29/17 1419 Signed Impressions: Service Date/Time: June 15:21 - CONCLUSION: Uncomplicated chest tube exchange as above. Ethan Cm MD Chest CT 06/28/17 0000 Signed Impressions: Service Date/Time: Wednesday, June 28, 2017 10:40 - CONCLUSION: Minimal subcutaneous emphysema, no pneumothorax. Stable bilateral parenchymal nodules. Kostas Avila MD FACR Lung Biopsy CT 06/26/17 0925 Signed Impressions: Service Date/Time: Monday, June 26, 2017 10:16 - CONCLUSION: Successful CT guided biopsy. Kashif Freitas MD Chest Tube Insertion 06/26/17 0000 Signed Impressions: Service Date/Time: Monday, June 26, 2017 15:25 - CONCLUSION: Uncomplicated chest tube placement as above. Ethan Cm MD Objective Remarks GENERAL: This is a well-nourished, well-developed patient, in no apparent distress. CARDIOVASCULAR: Regular rate and regular rhythm without murmurs, gallops, or rubs. RESPIRATORY: Clear to auscultation. Breath sounds equal bilaterally. No wheezes , rales, or rhonchi. chest tube in place. GASTROINTESTINAL: Abdomen soft, non-tender, nondistended. Normal, active bowel sounds MUSCULOSKELETAL: Extremities without clubbing, cyanosis, or edema. NEURO: Alert & Oriented x4 to person, place, time, situation. Moves all ext x4 Procedures Right lung mass biopsy with chest tube insertion/exchange secondary to pneumothorax Medications and IVs Current Medications Lidocaine/ Epinephrine (Xylocaine-Epi 1%-1:100,000 Inj) 20 ml STK-MED ONCE .ROUTE Last administered on 06/26/17 09:41; Start 06/26/17 at 09:41; Stop 06/26/17 at 09:42; Status DC Fentanyl Citrate (fentaNYL INJ) 200 mcg STK-MED ONCE .ROUTE Last administered on 06/26/17 10:15; Start 06/26/17 at 10:07; Stop 06/26/17 at 10:08; Status DC Midazolam HCl (Versed Inj) 4 mg STK-MED ONCE .ROUTE Last administered on 10:15; Start 06/26/17 at 10:07; Stop 06/26/17 at 10:08; Status DC Sodium Chloride 1,000 ml @ 30 mls/hr Q24H IV Last administered on 06/26/17 10:00; Start 06/26/17 at 11:00 Fentanyl Citrate (fentaNYL INJ) 100 mcg STK-MED ONCE .ROUTE Last administered on 06/26/17 15:25; Start 06/26/17 at 15:25; Stop 06/26/17 at 15:26; Status DC Midazolam HCl (Versed Inj) 2 mg STK-MED ONCE .ROUTE Last administered on 15:25; Start 06/26/17 at 15:25; Stop 06/26/17 at 15:26; Status DC Sodium Chloride (NS Flush) 2 ml UNSCH PRN IV FLUSH FLUSH AFTER USING IV ACCESS ; Start 06/27/17 at 10:15 Sodium Chloride (NS Flush) 2 ml BID IV FLUSH Last administered on 06/30/17t 21: 39; Start 06/27/17 at 21:00 Acetaminophen (Tylenol) 650 mg Q4H PRN PO TEMP > 100.4, pain 1-10; Start 06/27 at 10:15 Ondansetron HCl (Zofran Inj) 4 mg Q6H PRN IVP NAUSEA OR VOMITING; Start at 10:15 Zolpidem Tartrate (Ambien) 5 mg HS PRN PO INSOMNIA; Start 06/27/17 at 21:00 Naloxone HCl (Narcan Inj) 0.4 mg UNSCH PRN IV PUSH SEE LABEL COMMENTS; Start 06/27/17 at 10:15 Senna/Docusate Sodium (Valarie-Colace) 1 tab BID PO ; Start 06/27/17 at 21:00 Magnesium Hydroxide (Milk Of Magnesia Liq) 30 ml Q12H PRN PO Mild constipation ; Start 06/27/17 at 10:15 Sennosides (Senokot) 17.2 mg Q12H PRN PO Moderate constipation; Start at 10:15 Bisacodyl (Dulcolax Supp) 10 mg DAILY PRN RECTAL SEVERE CONSITIPATION; Start 06/27/17 at 10:15 Lactulose (Lactulose Liq) 30 ml DAILY PRN PO SEVERE CONSITIPATION; Start 06/27 at 10:15 Flumazenil (Romazicon Inj) 0.2 mg Q1M PRN IV PUSH SEE LABEL COMMENTS; Start at 14:45 Lorazepam (Ativan) 1 mg Q4H PRN PO CIWA 8 - 10; Start 06/27/17 at 14:45 Lorazepam (Ativan Inj) 1 mg Q4H PRN IV PUSH CIWA 8 - 10; Start 06/27/17 at 14: 45 Lorazepam (Ativan) 2 mg Q2H PRN PO CIWA 11-14; Start 06/27/17 at 14:45 Lorazepam (Ativan Inj) 2 mg Q2H PRN IV PUSH CIWA 11-14; Start 06/27/17 at 14: 45 Lorazepam (Ativan Inj) 2 mg Q1H PRN IV PUSH CIWA 15-20; Start 06/27/17 at 14: 45 Lorazepam (Ativan Inj) 2 mg Q15M PRN IV PUSH CIWA > 20; Start 06/27/17 at 14: 45 Morphine Sulfate (Oramorph Sr) 15 mg BID PO ; Start 06/28/17 at 21:00 Fentanyl Citrate (fentaNYL INJ) 100 mcg STK-MED ONCE .ROUTE Last administered on 06/29/17 14:27; Start 06/29/17 at 14:27; Stop 06/29/17 at 14:28; Status DC Midazolam HCl (Versed Inj) 2 mg STK-MED ONCE .ROUTE Last administered on 15:04; Start 06/29/17 at 15:04; Stop 06/29/17 at 15:05; Status DC A/P Problem List: (1) Pneumothorax after biopsy ICD Code: J95.811 - Postprocedural pneumothorax (2) Lung mass ICD Code: R91.8 - Other nonspecific abnormal finding of lung field Assessment and Plan A/P Pneumothorax after biopsy chest tube management per IR- lung adenocarcinoma she says that she already has an appointment with . oncology was notified about the result of the biopsy- likely will be evaluated as outpatient. this was d/w the patient. Alcohol abuse. Stable. Counseled -CIWA protocol Diet -Regular diet DVT prophylaxis -Ambulation as tolerated. -SCD's Discharge Planning dc home when chest tube has been removed and cleared by IR. f/u; pcp and oncology. see med list. d/w the patient and oncology. Jg Pimentel MD Jul 01, 2017 09:55
[2017-07-01] MEDS: SODIUM CHLOR 0.9% 1000 ML IV SCH ×2 (11:00)
--- NOTE | 2017-07-01 15:25 | RADRPT ---
EXAM DATE/TIME: 07/01/2017 15:05 [facility] COMPARISON: CT THORAX W/O CONTRAST, June 28, 2017, 10:40. INDICATIONS : Follow up pneumothorax. MEDICAL HISTORY : None. SURGICAL HISTORY : None. ENCOUNTER: Subsequent ACUITY: 4 - 6 days PAIN SCORE: 0/10 LOCATION: chest FINDINGS: Right chest remains in place. Apical pneumothorax is now tiny. Right mid lung nodule unchanged. No ac lorena infiltrates seen of either lung. Right chest wall emphysema again noted. CONCLUSION: Decreased right pneumothorax, now tiny. Right chest tube remains in place. Raúl Kerr MD on July 01, 2017 at 15:21 Board Certified Radiologist. This report was verified electronically.
[2017-07-02] VITALS (8 sets, daily range): BP systolic 115–131; BP diastolic 64–91; PULSE 62–105; RESP 16–18; TEMP 97.3–98.2; O2SAT 94–98
--- NOTE | 2017-07-02 06:38 | RADRPT ---
EXAM DATE/TIME: 07/02/2017 06:00 [facility] COMPARISON: CHEST SINGLE AP, July 01, 2017, 15:05. INDICATIONS : Evaluate pnuemothorax- Right side chest tube MEDICAL HISTORY : None. SURGICAL HISTORY : None. ENCOUNTER: Subsequent ACUITY: 4 - 6 days PAIN SCORE: 7/10 LOCATION: Bilateral chest FINDINGS: Macro AP right-sided chest tube is again seen with the tip at the lung apex. Small right apical pneum othorax unchanged. Lungs are clear. Cardiomediastinal silhouette within normal limits. CONCLUSION: No change in small right apical pneumothorax. Right-sided chest tube remains in place. Barrera Arguello MD on July 02, 2017 at 6:36 Board Certified Radiologist. This report was verified electronically.
[2017-07-02] MEDS: DOCUSATE SODIUM 50 MG/SENNA 8.6 MG TAB PO SCH ×4 (09:00→21:00)
[2017-07-02] MEDS: MORPHINE SULFATE 15 MG CONTROLLED RELEASE TAB PO SCH ×4 (09:00→21:00)
[2017-07-02] MEDS: SODIUM CHLORIDE 0.9% FLUSH 10 ML FLUSH IV FLUSH SCH ×4 (09:00→21:07)
--- NOTE | 2017-07-02 09:55 | HHI.PR ---
Subjective Remarks in no distress. no sob. denies pain. no new complaints. Objective Vitals Vital Signs Date Time Temp Pulse Resp B/P (MAP) Pulse Ox O2 Delivery O2 Flow Rate FiO2 07/02/17 08:00 98.0 66 18 126/64 (84) 96 07/02/17 04:00 97.3 69 16 131/77 (95) 98 07/02/17 04:00 Room Air 07/02/17 00:00 Room Air 07/02/17 00:00 97.4 67 16 115/73 (87) 97 07/01/17 20:04 81 07/01/17 20:00 97.2 89 17 155/91 (112) 98 07/01/17 20:00 Room Air 07/01/17 18:46 97.6 89 18 147/79 (101) 94 07/01/17 12:00 97.7 76 19 161/84 (109) 98 I/O 07/01/17 07/01/17 07/01/17 07/02/17 07/02/17 07/02/17 07:00 15:00 23:00 07:00 15:00 23:00 Intake Total 480 ml 740 ml 1100 ml Output Total 600 ml Balance 480 ml 140 ml 1100 ml Intake Oral 480 ml 740 ml 1100 ml Output Urine Total 600 ml # Voids 2 2 # Bowel Movements 1 1 Result Diagram: 06/28/17 0735 Imaging Last Impressions Chest X-Ray 07/02/17 0000 Signed Impressions: Service Date/Time: Sunday, July 02, 2017 06:00 - CONCLUSION: No change in small right apical pneumothorax. Right-sided chest tube remains in place. Barrera Arguello MD Chest Tube Change 06/29/17 1419 Signed Impressions: Service Date/Time: June 15:21 - CONCLUSION: Uncomplicated chest tube exchange as above. Ethan Cm MD Chest CT 06/28/17 0000 Signed Impressions: Service Date/Time: Wednesday, June 28, 2017 10:40 - CONCLUSION: Minimal subcutaneous emphysema, no pneumothorax. Stable bilateral parenchymal nodules. Kostas Avila MD FACR Lung Biopsy CT 06/26/17 0925 Signed Impressions: Service Date/Time: Monday, June 26, 2017 10:16 - CONCLUSION: Successful CT guided biopsy. Kashif Freitas MD Chest Tube Insertion 06/26/17 0000 Signed Impressions: Service Date/Time: Monday, June 26, 2017 15:25 - CONCLUSION: Uncomplicated chest tube placement as above. Ethan Cm MD Objective Remarks GENERAL: This is a well-nourished, well-developed patient, in no apparent distress. CARDIOVASCULAR: Regular rate and regular rhythm without murmurs, gallops, or rubs. RESPIRATORY: Clear to auscultation. Breath sounds equal bilaterally. No wheezes , rales, or rhonchi. chest tube in place. GASTROINTESTINAL: Abdomen soft, non-tender, nondistended. Normal, active bowel sounds MUSCULOSKELETAL: Extremities without clubbing, cyanosis, or edema. NEURO: Alert & Oriented x4 to person, place, time, situation. Moves all ext x4 Procedures Right lung mass biopsy with chest tube insertion/exchange secondary to pneumothorax Medications and IVs Current Medications Lidocaine/ Epinephrine (Xylocaine-Epi 1%-1:100,000 Inj) 20 ml STK-MED ONCE .ROUTE Last administered on 06/26/17 09:41; Start 06/26/17 at 09:41; Stop 06/26/17 at 09:42; Status DC Fentanyl Citrate (fentaNYL INJ) 200 mcg STK-MED ONCE .ROUTE Last administered on 06/26/17 10:15; Start 06/26/17 at 10:07; Stop 06/26/17 at 10:08; Status DC Midazolam HCl (Versed Inj) 4 mg STK-MED ONCE .ROUTE Last administered on 10:15; Start 06/26/17 at 10:07; Stop 06/26/17 at 10:08; Status DC Sodium Chloride 1,000 ml @ 30 mls/hr Q24H IV Last administered on 06/26/17 10:00; Start 06/26/17 at 11:00 Fentanyl Citrate (fentaNYL INJ) 100 mcg STK-MED ONCE .ROUTE Last administered on 06/26/17 15:25; Start 06/26/17 at 15:25; Stop 06/26/17 at 15:26; Status DC Midazolam HCl (Versed Inj) 2 mg STK-MED ONCE .ROUTE Last administered on 15:25; Start 06/26/17 at 15:25; Stop 06/26/17 at 15:26; Status DC Sodium Chloride (NS Flush) 2 ml UNSCH PRN IV FLUSH FLUSH AFTER USING IV ACCESS ; Start 06/27/17 at 10:15 Sodium Chloride (NS Flush) 2 ml BID IV FLUSH Last administered on 07/01/17t 21: 03; Start 06/27/17 at 21:00 Acetaminophen (Tylenol) 650 mg Q4H PRN PO TEMP > 100.4, pain 1-10; Start 06/27 at 10:15 Ondansetron HCl (Zofran Inj) 4 mg Q6H PRN IVP NAUSEA OR VOMITING; Start at 10:15 Zolpidem Tartrate (Ambien) 5 mg HS PRN PO INSOMNIA; Start 06/27/17 at 21:00 Naloxone HCl (Narcan Inj) 0.4 mg UNSCH PRN IV PUSH SEE LABEL COMMENTS; Start 06/27/17 at 10:15 Senna/Docusate Sodium (Valarie-Colace) 1 tab BID PO ; Start 06/27/17 at 21:00 Magnesium Hydroxide (Milk Of Magnesia Liq) 30 ml Q12H PRN PO Mild constipation ; Start 06/27/17 at 10:15 Sennosides (Senokot) 17.2 mg Q12H PRN PO Moderate constipation; Start at 10:15 Bisacodyl (Dulcolax Supp) 10 mg DAILY PRN RECTAL SEVERE CONSITIPATION; Start 06/27/17 at 10:15 Lactulose (Lactulose Liq) 30 ml DAILY PRN PO SEVERE CONSITIPATION; Start 06/27 at 10:15 Flumazenil (Romazicon Inj) 0.2 mg Q1M PRN IV PUSH SEE LABEL COMMENTS; Start at 14:45 Lorazepam (Ativan) 1 mg Q4H PRN PO CIWA 8 - 10; Start 06/27/17 at 14:45 Lorazepam (Ativan Inj) 1 mg Q4H PRN IV PUSH CIWA 8 - 10; Start 06/27/17 at 14: 45 Lorazepam (Ativan) 2 mg Q2H PRN PO CIWA 11-14; Start 06/27/17 at 14:45 Lorazepam (Ativan Inj) 2 mg Q2H PRN IV PUSH CIWA 11-14; Start 06/27/17 at 14: 45 Lorazepam (Ativan Inj) 2 mg Q1H PRN IV PUSH CIWA 15-20; Start 06/27/17 at 14: 45 Lorazepam (Ativan Inj) 2 mg Q15M PRN IV PUSH CIWA > 20; Start 06/27/17 at 14: 45 Morphine Sulfate (Oramorph Sr) 15 mg BID PO ; Start 06/28/17 at 21:00 Fentanyl Citrate (fentaNYL INJ) 100 mcg STK-MED ONCE .ROUTE Last administered on 06/29/17 14:27; Start 06/29/17 at 14:27; Stop 06/29/17 at 14:28; Status DC Midazolam HCl (Versed Inj) 2 mg STK-MED ONCE .ROUTE Last administered on 15:04; Start 06/29/17 at 15:04; Stop 06/29/17 at 15:05; Status DC A/P Problem List: (1) Pneumothorax after biopsy ICD Code: J95.811 - Postprocedural pneumothorax (2) Lung mass ICD Code: R91.8 - Other nonspecific abnormal finding of lung field Assessment and Plan A/P Pneumothorax after biopsy chest tube management per IR- lung adenocarcinoma she says that she already has an appointment with . oncology was notified about the result of the biopsy- will be evaluated as outpatient. this was d/w the patient. Alcohol abuse. Stable. Counseled -CIWA protocol Diet -Regular diet DVT prophylaxis -Ambulation as tolerated. -SCD's Discharge Planning dc home when chest tube has been removed and cleared by IR. f/u; pcp and oncology. d/w the patient and previously with her daughter. Jg Pimentel MD Jul 02, 2017 09:55
[2017-07-02] MEDS: SODIUM CHLOR 0.9% 1000 ML IV SCH ×2 (11:00)
[2017-07-03] VITALS: BP 119/67; PULSE 66; RESP 18; TEMP 98; O2SAT 99
[2017-07-03 04:00] VITALS: BP 104/59; PULSE 81; RESP 20; TEMP 98; O2SAT 96
[2017-07-03 08:00] VITALS: BP 115/67; PULSE 68; RESP 17; TEMP 98; O2SAT 96
--- NOTE | 2017-07-03 08:27 | HHI.PR ---
Subjective Remarks in no acute distress. chest tube in place. no chest pain or sob. no new complaints. Objective Vitals Vital Signs Date Time Temp Pulse Resp B/P (MAP) Pulse Ox O2 Delivery O2 Flow Rate FiO2 07/03/17 04:00 98.0 81 20 104/59 (74) 96 07/03/17 04:00 Room Air 07/03/17 00:00 Room Air 07/03/17 00:00 98.0 66 18 119/67 (84) 99 07/02/17 20:09 70 07/02/17 20:00 Room Air 07/02/17 20:00 98.2 70 18 116/64 (81) 97 07/02/17 16:00 97.7 85 18 128/75 (92) 96 07/02/17 12:00 98.2 105 18 128/91 (103) 94 I/O 07/02/17 07/02/17 07/02/17 07/03/17 07/03/17 07/03/17 07:00 15:00 23:00 07:00 15:00 23:00 Intake Total 1100 ml 480 ml Balance 1100 ml 480 ml Intake Oral 1100 ml 480 ml # Voids 2 1 # Bowel Movements 0 Imaging Last Impressions Chest X-Ray 07/02/17 0000 Signed Impressions: Service Date/Time: Sunday, July 02, 2017 06:00 - CONCLUSION: No change in small right apical pneumothorax. Right-sided chest tube remains in place. Barrera Arguello MD Chest Tube Change 06/29/17 1419 Signed Impressions: Service Date/Time: June 15:21 - CONCLUSION: Uncomplicated chest tube exchange as above. Ethan Cm MD Chest CT 06/28/17 0000 Signed Impressions: Service Date/Time: Wednesday, June 28, 2017 10:40 - CONCLUSION: Minimal subcutaneous emphysema, no pneumothorax. Stable bilateral parenchymal nodules. Kostas Avila MD FACR Lung Biopsy CT 06/26/17 0925 Signed Impressions: Service Date/Time: Monday, June 26, 2017 10:16 - CONCLUSION: Successful CT guided biopsy. Kashif Freitas MD Chest Tube Insertion 06/26/17 0000 Signed Impressions: Service Date/Time: Monday, June 26, 2017 15:25 - CONCLUSION: Uncomplicated chest tube placement as above. Ethan Cm MD Objective Remarks GENERAL: This is a well-nourished, well-developed patient, in no apparent distress. CARDIOVASCULAR: Regular rate and regular rhythm without murmurs, gallops, or rubs. RESPIRATORY: Clear to auscultation. Breath sounds equal bilaterally. No wheezes , rales, or rhonchi. chest tube in place. GASTROINTESTINAL: Abdomen soft, non-tender, nondistended. Normal, active bowel sounds MUSCULOSKELETAL: Extremities without clubbing, cyanosis, or edema. NEURO: Alert & Oriented x4 to person, place, time, situation. Moves all ext x4 Procedures Right lung mass biopsy with chest tube insertion/exchange secondary to pneumothorax Medications and IVs Current Medications Lidocaine/ Epinephrine (Xylocaine-Epi 1%-1:100,000 Inj) 20 ml STK-MED ONCE .ROUTE Last administered on 06/26/17 09:41; Start 06/26/17 at 09:41; Stop 06/26/17 at 09:42; Status DC Fentanyl Citrate (fentaNYL INJ) 200 mcg STK-MED ONCE .ROUTE Last administered on 06/26/17 10:15; Start 06/26/17 at 10:07; Stop 06/26/17 at 10:08; Status DC Midazolam HCl (Versed Inj) 4 mg STK-MED ONCE .ROUTE Last administered on 10:15; Start 06/26/17 at 10:07; Stop 06/26/17 at 10:08; Status DC Sodium Chloride 1,000 ml @ 30 mls/hr Q24H IV Last administered on 06/26/17 10:00; Start 06/26/17 at 11:00 Fentanyl Citrate (fentaNYL INJ) 100 mcg STK-MED ONCE .ROUTE Last administered on 06/26/17 15:25; Start 06/26/17 at 15:25; Stop 06/26/17 at 15:26; Status DC Midazolam HCl (Versed Inj) 2 mg STK-MED ONCE .ROUTE Last administered on 15:25; Start 06/26/17 at 15:25; Stop 06/26/17 at 15:26; Status DC Sodium Chloride (NS Flush) 2 ml UNSCH PRN IV FLUSH FLUSH AFTER USING IV ACCESS ; Start 06/27/17 at 10:15 Sodium Chloride (NS Flush) 2 ml BID IV FLUSH Last administered on 07/02/17t 21: 07; Start 06/27/17 at 21:00 Acetaminophen (Tylenol) 650 mg Q4H PRN PO TEMP > 100.4, pain 1-10; Start 06/27 at 10:15 Ondansetron HCl (Zofran Inj) 4 mg Q6H PRN IVP NAUSEA OR VOMITING; Start at 10:15 Zolpidem Tartrate (Ambien) 5 mg HS PRN PO INSOMNIA; Start 06/27/17 at 21:00 Naloxone HCl (Narcan Inj) 0.4 mg UNSCH PRN IV PUSH SEE LABEL COMMENTS; Start 06/27/17 at 10:15 Senna/Docusate Sodium (Valarie-Colace) 1 tab BID PO ; Start 06/27/17 at 21:00 Magnesium Hydroxide (Milk Of Magnesia Liq) 30 ml Q12H PRN PO Mild constipation ; Start 06/27/17 at 10:15 Sennosides (Senokot) 17.2 mg Q12H PRN PO Moderate constipation; Start at 10:15 Bisacodyl (Dulcolax Supp) 10 mg DAILY PRN RECTAL SEVERE CONSITIPATION; Start 06/27/17 at 10:15 Lactulose (Lactulose Liq) 30 ml DAILY PRN PO SEVERE CONSITIPATION; Start 06/27 at 10:15 Flumazenil (Romazicon Inj) 0.2 mg Q1M PRN IV PUSH SEE LABEL COMMENTS; Start at 14:45 Lorazepam (Ativan) 1 mg Q4H PRN PO CIWA 8 - 10; Start 06/27/17 at 14:45 Lorazepam (Ativan Inj) 1 mg Q4H PRN IV PUSH CIWA 8 - 10; Start 06/27/17 at 14: 45 Lorazepam (Ativan) 2 mg Q2H PRN PO CIWA 11-14; Start 06/27/17 at 14:45 Lorazepam (Ativan Inj) 2 mg Q2H PRN IV PUSH CIWA 11-14; Start 06/27/17 at 14: 45 Lorazepam (Ativan Inj) 2 mg Q1H PRN IV PUSH CIWA 15-20; Start 06/27/17 at 14: 45 Lorazepam (Ativan Inj) 2 mg Q15M PRN IV PUSH CIWA > 20; Start 06/27/17 at 14: 45 Morphine Sulfate (Oramorph Sr) 15 mg BID PO ; Start 06/28/17 at 21:00 Fentanyl Citrate (fentaNYL INJ) 100 mcg STK-MED ONCE .ROUTE Last administered on 06/29/17 14:27; Start 06/29/17 at 14:27; Stop 06/29/17 at 14:28; Status DC Midazolam HCl (Versed Inj) 2 mg STK-MED ONCE .ROUTE Last administered on 15:04; Start 06/29/17 at 15:04; Stop 06/29/17 at 15:05; Status DC A/P Problem List: (1) Pneumothorax after biopsy ICD Code: J95.811 - Postprocedural pneumothorax (2) Lung mass ICD Code: R91.8 - Other nonspecific abnormal finding of lung field Assessment and Plan A/P Pneumothorax after biopsy chest tube management per IR- lung adenocarcinoma she says that she already has an appointment with . oncology was notified about the result of the biopsy- will be evaluated as outpatient. this was d/w the patient. Alcohol abuse. Stable. Counseled -CIWA protocol Diet -Regular diet DVT prophylaxis -Ambulation as tolerated. -SCD's Discharge Planning awaiting IR follow-up and recommendations on chest tube. dc home when cleared by IR. Jg Pimentel MD Jul 03, 2017 08:27
[2017-07-03] MEDS: SODIUM CHLORIDE 0.9% FLUSH 10 ML FLUSH IV FLUSH SCH ×2 (08:43)
[2017-07-03 10:00] VITALS: PULSE 71
[2017-07-03 12:00] VITALS: BP 144/80; PULSE 67; RESP 18; TEMP 97.2; O2SAT 99
--- NOTE | 2017-07-03 14:05 | RADRPT ---
EXAM DATE/TIME: 07/03/2017 13:14 [facility] COMPARISON: CHEST SINGLE AP, July 02, 2017, 6:00. INDICATIONS : Pneumothorax. Evaluation on water seal. MEDICAL HISTORY : None. SURGICAL HISTORY : section. ENCOUNTER: Subsequent ACUITY: 1 week PAIN SCORE: 1/10 LOCATION: Right chest FINDINGS: A single view of the chest demonstrates the lungs to be symmetrically aerated with a mass lesion proj ecting over the inferior aspect of the right scapula. Large bore thoracostomy tube is stable in posit ion with a stable, very tiny right apical pneumothorax. Left lung is clear. Heart size is normal. CONCLUSION: 1. Mass lesion projecting over the inferior aspect of the right scapula. 2. Stable position of large bore right thoracostomy tube. 3. Very tiny right apical pneumothorax is completely stable on water seal. Left lung remains clear. Nahun Smalls MD on July 03, 2017 at 13:59 Board Certified Radiologist. This report was verified electronically.
--- NOTE | 2017-07-03 15:23 | RADRPT ---
EXAM DATE/TIME: 07/03/2017 14:51 [facility] COMPARISON: CHEST EXPIRATION ONLY, June 30, 2017, 7:49. INDICATIONS : Post right sided chest tube removal. MEDICAL HISTORY : None. SURGICAL HISTORY : section. ENCOUNTER: Subsequent ACUITY: 1 week PAIN SCORE: 0/10 LOCATION: Bilateral chest FINDINGS: Interval removal of right-sided chest tube. No significant pneumothorax. Redemonstration of mass in t he peripheral right midlung zone. Remainder of exam is unchanged. CONCLUSION: 1. No significant pneumothorax following chest tube removal. Jean Troy MD on July 03, 2017 at 15:19 Board Certified Radiologist. This report was verified electronically.
--- NOTE | 2017-07-03 15:23 | RADRPT ---
EXAM DATE/TIME: 07/03/2017 14:51 [facility] COMPARISON: CHEST EXPIRATION ONLY, June 30, 2017, 7:49. INDICATIONS : Post right sided chest tube removal. MEDICAL HISTORY : None. SURGICAL HISTORY : section. ENCOUNTER: Subsequent ACUITY: 1 week PAIN SCORE: 0/10 LOCATION: Bilateral chest FINDINGS: Interval removal of right-sided chest tube. No significant pneumothorax. Redemonstration of mass in t he peripheral right midlung zone. Remainder of exam is unchanged. CONCLUSION: 1. No significant pneumothorax following chest tube removal. Jean rToy MD on July 03, 2017 at 15:19 Board Certified Radiologist. This report was verified electronically.
--- NOTE | 2017-07-03 16:42 | HHI.DS ---
Discharge Summary Admission Date Jun 26, 2017 at 16:01 Discharge Date: Jul 03, 2017 Admitting Diagnosis pneumothorax (1) Pneumothorax after biopsy ICD Code: J95.811 - Postprocedural pneumothorax Diagnosis: Principal (2) Lung mass ICD Code: R91.8 - Other nonspecific abnormal finding of lung field Diagnosis: Secondary Procedures Right lung mass biopsy with chest tube insertion/exchange secondary to pneumothorax Brief History - From Admission Written by Everett Basurto PA-C acting as scribe for Dr. Jamin Bacon on 06/27/17 at 13:24. Ms. Rodney is 57 yo, with history of breast cancer diagnosed in April,. She had no significant medical history. Ms. Rodney underwent lung biopsy on 06/26/17 and subsequently developed a pneumothorax of the right lung; a chest tube was placed. Pt was hospitalized and the hospitalist team was consulted. At time of interview, Pt was resting comfortably. She reported she was without chest pain, shortness of breath, or difficulty breathing. She denied fever, malaise,nausea, vomiting, diarrhea. She spoke of ambulating "to go to the bathroom" ("taking my tube with me"), and denied difficulty with bowel/bladder habits. Weight loss was also denied; she did say she had a decreased appetite "since I've been here." A 10 point ROS was conducted and,except as noted above was negative. PE at Discharge GENERAL: This is a well-nourished, well-developed patient, in no apparent distress. CARDIOVASCULAR: Regular rate and regular rhythm without murmurs, gallops, or rubs. RESPIRATORY: Clear to auscultation. Breath sounds equal bilaterally. No wheezes , rales, or rhonchi. chest tube in place. GASTROINTESTINAL: Abdomen soft, non-tender, nondistended. Normal, active bowel sounds MUSCULOSKELETAL: Extremities without clubbing, cyanosis, or edema. NEURO: Alert & Oriented x4 to person, place, time, situation. Moves all ext x4 Hospital Course Pneumothorax after biopsy chest tube management per IR- lung adenocarcinoma she says that she already has an appointment with Dr.Deveras. oncology was notified about the result of the biopsy- will be evaluated as outpatient. this was d/w the patient. Alcohol abuse. Stable. Counseled -CINJ protocol Diet -Regular diet DVT prophylaxis -Ambulation as tolerated. -SCD's Pt Condition on Discharge: Good Discharge Disposition: Discharge Home Discharge Time: <= 30 minutes Discharge Instructions DIET: Follow Instructions for: As Tolerated, No Restrictions Activities you can perform: Regular-No Restrictions Jg Pimentel MD Jul 03, 2017 16:42
--- NOTE | 2017-07-04 09:16 | RADRPT ---
EXAM DATE/TIME: 07/03/2017 14:30 [facility] COMPARISON: No previous studies available for comparison. INDICATIONS : PNEMOTHORAX DEVICE(S): 1.) Vaseline occlusive dressing 2.) GUASE PROCEDURE : Chest tube removal. Using aseptic technique the previously placed chest tube was easily removed in one piece and Vaseline gauze and sterile dressing was applied. Chest radiograph is to be obtained. CONCLUSION: Uncomplicated chest tube removal. Nahun Smalls MD on July 04, 2017 at 9:13 Board Certified Radiologist. This report was verified electronically.
== END 2017-07-03 17:18 | disposition home or self-care (01) | DRG 200 ==
LOC: HRIP 08:50 → HRAD 08:50 → HSDI 16:01 → HRIP 16:01 → HSDI 16:01 → N04A 17:49
PROVIDERS: ADMIT Internal Medicine; ATTEND Internal Medicine
PROC: 0W9930Z Drainage of Right Pleural Cavity with Drainage Device, Percutaneous Approach (ICD-10-PCS; principal; 2017-06-26)
PROC: 0BBK3ZX Excision of Right Lung, Percutaneous Approach, Diagnostic (ICD-10-PCS; 2017-06-26)
PROC: 0B2QX0Z Change Drainage Device in Pleura, External Approach (ICD-10-PCS; 2017-06-29)
DX: J95.811 Postprocedural pneumothorax (principal); C34.90 Malignant neoplasm of unspecified part of unspecified bronchus or lung; E87.1 Hypo-osmolality and hyponatremia; C50.811 Malignant neoplasm of overlapping sites of right female breast; F10.10 Alcohol abuse, uncomplicated; Z87.891 Personal history of nicotine dependence
CPT/HCPCS: 32405; 32557; 71010; 71250; 77012; 80048; 80053; 85025; 85610; 85730; 88305; 88341; 88342; 99152; 99153; C1729; C1769; J2250; J3010; J7030

== ENCOUNTER → 2017-07-25 | Day surgery (SDC) | payer BC ==
[~2017-07-25] VITALS: Ht 167.6 cm; Wt 55.9 kg
[~2017-07-25] MED LIST: ACETAMINOPHEN 1000 MG/100 ML 100 ML IV SCH; ANAS1TAB PO; BUPIVACAINE HCL PF 0.5% 30 ML VIAL ONE; BUPIVACAINE/EPINEPHRINE 0.5% PF 30 ML VIAL ONE; CHLORHEXIDINE GLUCONATE 2 % 1 PACK (2 CLOTHS) TOPICAL PRN; FAMOTIDINE 20 MG/2 ML VIAL ONE; HEPARIN SODIUM - IV 10,000 UNITS/10 ML VIAL ONE; INSULIN HUMAN REGULAR 1,000 UNITS/10 ML VIAL SQ PRN; LACTATED RINGER'S 1000 ML IV PRN; LORA0.5T PO; METOPROLOL TARTRATE 25 MG TAB PO PRN; MIDAZOLAM HCL 2 MG/2 ML VIAL ONE; MS C15TA7 PO; POVIDONE IODINE 5% (ANTISEPSIS KIT) 4 APPLICATIONS EACH NARE PRN; PROC10TA PO; SODIUM CHLORID 0.9% 500 ML IV PRN; SODIUM CHLORIDE 0.9% 20 ML VIAL ONE
[2017-07-25] MEDS: ceFAZolin 2 GM PREMIX 50 ML IV SCH ×2 (10:15→10:41)
[2017-07-25 13:47] VITALS: PULSE 79
[2017-07-25 14:45] VITALS: BP 153/88; PULSE 81; RESP 16; TEMP 98.6; O2SAT 100
--- NOTE | 2017-07-25 15:04 | MP ---
cc: MARIANAGOMEZ DATE OF SURGERY: 07/25/2017 PREOPERATIVE DIAGNOSIS Metastatic carcinoma of the right breast. POSTOPERATIVE DIAGNOSIS Metastatic carcinoma of the right breast. PROCEDURE 1. Right modified radical mastectomy. 2. Left subclavian Vflgkb-E-Lfrv. SURGEON Mariana. ANESTHESIA General. OPERATIVE PROCEDURE The patient was brought to the operating room and after satisfactory general anesthesia was obtained, the right chest, axilla and left chest were prepped and draped in the usual sterile fashion. Attention was turned to the mastectomy first and an elliptical skin incision was marked with a sterile pen after which the upper incision was made, carried down sharply through the subcutaneous tissue with cautery being used for hemostasis. The incision was deepened to the chest wall using the cautery with a relatively thin flap being created. The dissection was carried down to approximately 1 to 1.5 cm inferior to the clavicle. The inferior incision was then made and carried down sharply through the subcutaneous tissue with an inferior flap developed with the cautery exactly in the same fashion to the inframammary fold. The breast was then taken off the chest wall in a medial to lateral fashion along with the pectoralis fascia using the cautery. The dissection was carried laterally to the anterior border of the latissimus dorsi which was then followed into the axilla proper. The axilla proper was entered by incising the clavipectoral fascia and the axillary contents were dissected free from the medial aspect of the axillary vein to the anterior border of the latissimus dorsi. After the vein had been identified the axillary contents were dissected down posteriorly to the scapularis. The contents were then swept inferiorly and laterally with vessels being taken with the Harmonic scalpel and preservation of the thoracodorsal and long thoracic nerves being accomplished. Once the axillary contents were dissected free in their entirety they were passed en bloc with the breast for permanent pathology. Hemostasis was checked for and found to be satisfactory. Two 10 mm Michael drains were placed through separate stab incisions inferior to the incision with one being situated in the axilla and the other anterior to the pectoralis major. Both were sutured into place with 3-0 nylon sutures. The subcutaneous tissue was approximated with interrupted 3-0 Vicryl sutures and due to a moderate amount of tension it was decided to close the wound with myrtle rather than a subcuticular stitch. Sterile dressing was applied and attention was then turned to the Zwzltk-M-Lyle. The surgical team's gown and gloves were changed and a new set of instruments were used for placement of the Lawlrr-B-Cery. 0.5% Marcaine with epinephrine was used to infiltrate the skin for local anesthesia. A large bore needle was used to cannulate the left subclavian vein without problem. A guidewire was inserted into the superior vena cava and placement confirmed on fluoroscopy. The skin was incised medial to the guidewire and a subcutaneous pocket fashioned for the Osizhc-G-Pcsi. The port was placed within the pocket and the catheter cut to the appropriate length. A dilator and introducer were placed over the guidewire and the catheter inserted into the superior vena cava, again with placement confirmed on fluoroscopy. The port was affixed to the pectoralis fascia with a 3-0 Vicryl suture. The port was then accessed easily and flushed with heparinized saline with no problem. The subcutaneous tissue and skin were closed with interrupted 4-0 PDS subcuticular stitches. Permanent x-ray was taken prior to the patient leaving the operating room. Steri-Strips were placed over the incision and the patient was then awakened and taken from the operating room, in satisfactory condition, having tolerated the procedure without problem. Estimated blood loss was less than 100 mL. The instrument counts, sponge counts and needle counts were reported as being correct x2 at the end of the procedure. MD LAKISHA Pollack/RADHA /1:46 PM /2:41 PM
--- NOTE | 2017-07-25 15:52 | RADRPT ---
EXAM DATE/TIME: 07/25/2017 14:43 [facility] COMPARISON: No previous studies available for comparison. INDICATIONS : Infusaport placement. FLUORO TIME: .45 minutes IMAGE COUNT: 1 MEDICAL HISTORY : Carcinoma, breast. SURGICAL HISTORY : Mastectomy, right. section. ENCOUNTER: Initial ACUITY: 1 day PAIN SCORE: Non-responsive. LOCATION: Left chest FINDINGS: Left subclavian power port with the tip extending to the central venous system and off the inferior a spect of the image. No pneumothorax on the single image provided. Endotracheal tube is appropriately positioned above the melina. CONCLUSION: Left subclavian power port as above. Nahun Smalls MD on July 25, 2017 at 15:49 Board Certified Radiologist. This report was verified electronically.
== END | disposition home or self-care (01) ==
LOC: PHSDC 08:08
PROVIDERS: ATTEND Surgery
DX: C50.911 Malignant neoplasm of unspecified site of right female breast (principal)
CPT/HCPCS: 00400; 19303; 36561; 76000; 88309; C1788; J0690; J1644; J2250; J7120; 88307

== ENCOUNTER 2017-08-14 11:11 | Inpatient (IN) | payer BC ==
[~2017-08-14] VITALS: Ht 167.6 cm; Wt 54.0 kg
[~2017-08-14 11:11] MED LIST changes: -ACETAMINOPHEN 1000 MG/100 ML 100 ML IV SCH; -BUPIVACAINE HCL PF 0.5% 30 ML VIAL ONE; -BUPIVACAINE/EPINEPHRINE 0.5% PF 30 ML VIAL ONE; -CHLORHEXIDINE GLUCONATE 2 % 1 PACK (2 CLOTHS) TOPICAL PRN; -FAMOTIDINE 20 MG/2 ML VIAL ONE; -HEPARIN SODIUM - IV 10,000 UNITS/10 ML VIAL ONE; -INSULIN HUMAN REGULAR 1,000 UNITS/10 ML VIAL SQ PRN; -LACTATED RINGER'S 1000 ML IV PRN; -METOPROLOL TARTRATE 25 MG TAB PO PRN; -MIDAZOLAM HCL 2 MG/2 ML VIAL ONE; -POVIDONE IODINE 5% (ANTISEPSIS KIT) 4 APPLICATIONS EACH NARE PRN; -SODIUM CHLORID 0.9% 500 ML IV PRN; -SODIUM CHLORIDE 0.9% 20 ML VIAL ONE
[2017-08-14] MEDS ORDERED: METRONIDAZOLE 500 MG/100 ML ISONTONIC SOLN IV ONE (11:45)
[2017-08-14] MEDS ORDERED: ONDANSETRON HCL 4 MG/2 ML VIAL IV PUSH ONE (12:00)
[2017-08-14] MEDS ORDERED: SODIUM CHLORIDE 0.9% 20 ML VIAL IV ONE (12:00)
[2017-08-14] MEDS ORDERED: ROCURONIUM INJ 50 MG/5 ML SYRINGE IV PUSH ONE (12:00)
[2017-08-14] MEDS ORDERED: PROPOFOL 200 MG/20 ML AMP IV ONE (12:00)
[2017-08-14] MEDS ORDERED: DEXT 5%-NACL 0.9% 1000 ML INJ 1,000 ML IV SCH (12:00)
[2017-08-14] MEDS ORDERED: DEXAMETHASONE SOD PHOS 4 MG/ML VIAL IV ONE (12:00)
[2017-08-14] MEDS ORDERED: LIDOCAINE HCL 1% PF 5 ML SYRINGE OTHER ONE (12:00)
[2017-08-14] MEDS ORDERED: SODIUM CHLORID 0.9% 500 ML IV PRN (12:15)
[2017-08-14] MEDS ORDERED: CHLORHEXIDINE GLUCONATE 2 % 1 PACK (2 CLOTHS) TOPICAL PRN (12:15)
[2017-08-14] MEDS ORDERED: POVIDONE IODINE 5% (ANTISEPSIS KIT) 4 APPLICATIONS EACH NARE PRN (12:15)
[2017-08-14] MEDS ORDERED: LACTATED RINGER'S 1000 ML IV PRN (12:15)
[2017-08-14] MEDS ORDERED: METOPROLOL TARTRATE 25 MG TAB PO PRN (12:15)
[2017-08-14 12:47] LABS: AUTOMATED NEUTROPHIL # 2.6 TH/MM3 (1.8-7.7); EOSINOPHIL # 0.2 TH/MM3 (0-0.4); EOSINOPHIL % 5.5 % (0.0-4.0); HEMATOCRIT 39.7 % (35.0-46.0); HEMO FLAGS DIFF FINAL; LYMPH % 24.2 % (9.0-44.0); MEAN CELL VOLUME 93.5 FL (80.0-100.0); MEAN CORPUSCULAR HEMOGLOBIN 31.1 PG (27.0-34.0); MEAN CORPUSCULAR HGB CONC 33.3 % (32.0-36.0); NEUT % 62.3 % (16.0-70.0); PLATELET COUNT 247 TH/MM3 (150-450); RED BLOOD COUNT 4.25 MIL/MM3 (4.00-5.30); RED CELL DISTRIBUTION WIDTH 13.4 % (11.6-17.2); WHITE BLOOD COUNT 4.2 TH/MM3 (4.0-11.0)
[2017-08-14 12:59] LABS: ALKALINE PHOSPHATASE 99 U/L (45-117); TOTAL BILIRUBIN ADULT 0.5 MG/DL (0.2-1.0)
[2017-08-14 13:09] LABS: ALT (GPT) 18 U/L (10-53); ANION GAP 9 MEQ/L (5-15); AST (GOT) 23 U/L (15-37); BICARBONATE 26.6 MEQ/L (21.0-32.0); BLOOD UREA NITROGEN 7 MG/DL (7-18); CHLORIDE 100 MEQ/L (98-107); GLOMERULAR FILTRATION RATE 104 ML/MIN (>89); POTASSIUM 3.8 MEQ/L (3.5-5.1); SODIUM (NA) 136 MEQ/L (136-145)
--- NOTE | 2017-08-14 14:11 | PD.HP.UP ---
H&P Update Note The Pre-Admit History and Physical Examination regarding the above named patient was reviewed (including, but not limited to, vital signs, heart, lungs, co-morbid conditions), and upon re-examination it is noted that: the patient's condition has not significantly changed since the last examination. Preston Paz MD Aug 14, 2017 14:11
[2017-08-14] MEDS: ceFAZolin 1,000 MG/NS 100 ML IV SCH ×4 (14:35→15:05)
[2017-08-14] MEDS ORDERED: MORPHINE SULFATE 30 MG/30 ML PCA IV SCH (15:45)
[2017-08-14] MEDS ORDERED: ENALAPRILAT 1.25 MG/ML VIAL IV PUSH PRN (15:45)
[2017-08-14] MEDS ORDERED: ACETAMINOPHEN/HYDROcodone 325 MG/5 MG TAB PO PRN (15:45)
[2017-08-14] MEDS ORDERED: ONDANSETRON HCL 4 MG/2 ML VIAL IV PUSH PRN (15:45)
[2017-08-14] MEDS ORDERED: Post-op Orders (for Pharmacy) XX ONE (15:45)
[2017-08-14] MEDS ORDERED: POTASSIUM CHLOR 40 MEQ PREMIX 100 ML IV PRN (15:45)
[2017-08-14] MEDS ORDERED: POTASSIUM CHLOR 20 MEQ PREMIX 100 ML IV PRN (15:45)
[2017-08-14] MEDS ORDERED: BENZOCAINE 6 MG/MENTHOL 10 MG LOZENGE BUCCAL PRN (15:45)
[2017-08-14] MEDS ORDERED: NALOXONE HCL 0.4 MG/ML AMP IV PUSH PRN (15:45)
[2017-08-14] MEDS ORDERED: ENALAPRILAT 2.5 MG/2 ML VIAL IV PUSH PRN (15:45)
[2017-08-14] MEDS ORDERED: KETOROLAC TROMETHAMINE 30 MG/ML (IVP) VIAL IVP PRN (16:00)
[2017-08-14] MEDS ORDERED: DO NOT ADM ANY ANTICOAGULANT DRUGS PRN (16:15)
--- NOTE | 2017-08-14 16:30 | EKG ---
Date Performed: 08/14/2017 Time Performed: 11:42:05 PTAGE: 57 years EKG: Sinus rhythm POSSIBLE RIGHT ATRIAL ENLARGEMENT POSSIBLE LEFT ATRIAL ENLARGEMENT BORDERLINE ECG NO PREVIOUS TRACING DOCTOR: Yumiko Young Interpretating Date/Time 08/14/2017 16:28:38
[2017-08-14] MEDS: D5-NS + KCL 20 MEQ INJ 1,000 ML IV SCH (16:35)
[2017-08-14 17:35] VITALS: BP 163/85; PULSE 80; RESP 17; TEMP 97.2; O2SAT 96
[2017-08-14] MEDS: HEPARIN SODIUM - SQ 10,000 UNITS/ML VIAL SQ SCH (18:00)
[2017-08-14 20:00] VITALS: BP 162/84; PULSE 79; RESP 19; TEMP 98.1; O2SAT 96
[2017-08-14] MEDS: METOCLOPRAMIDE HCL 10 MG/2 ML VIAL IVS SCH (21:00)
[2017-08-14] MEDS: metroNIDAZOLE 500 MG INJ 100 ML IV SCH (21:22)
[2017-08-14] MEDS: PCA - TOTAL MG MORPHINE DELIVERED PER SHIFT SCH (22:00)
[2017-08-15] VITALS: BP 113/69; PULSE 74; RESP 19; TEMP 95.6; O2SAT 97
[2017-08-15] MEDS: D5-NS + KCL 20 MEQ INJ 1,000 ML IV SCH ×3 (00:30→14:00)
[2017-08-15] MEDS: metroNIDAZOLE 500 MG INJ 100 ML IV SCH ×2 (03:57→13:22)
[2017-08-15 04:00] VITALS: BP 143/73; PULSE 78; RESP 19; TEMP 96.7; O2SAT 93
[2017-08-15] MEDS: PCA - TOTAL MG MORPHINE DELIVERED PER SHIFT SCH (06:00)
[2017-08-15] MEDS: HEPARIN SODIUM - SQ 10,000 UNITS/ML VIAL SQ SCH ×2 (06:00→18:00)
[2017-08-15 08:00] VITALS: BP 148/76; PULSE 61; RESP 17; TEMP 98.4; O2SAT 97
[2017-08-15] MEDS: PANTOPRAZOLE SODIUM 40 MG VIAL IVP SCH (09:00)
[2017-08-15 09:10] LABS: AUTOMATED NEUTROPHIL # 5.2 TH/MM3 (1.8-7.7); BASOPHIL % 0.7 % (0.0-2.0); EOSINOPHIL % 0.3 % (0.0-4.0); HEMATOCRIT 38.9 % (35.0-46.0); HEMO FLAGS DIFF FINAL; LYMPHOCYTE # 1.2 TH/MM3 (1.0-4.8); MEAN CELL VOLUME 93.4 FL (80.0-100.0); MEAN CORPUSCULAR HEMOGLOBIN 31.5 PG (27.0-34.0); MEAN CORPUSCULAR HGB CONC 33.7 % (32.0-36.0); MONO % 6.9 % (0.0-8.0); NEUT % 75.1 % (16.0-70.0); PLATELET COUNT 240 TH/MM3 (150-450); RED BLOOD COUNT 4.16 MIL/MM3 (4.00-5.30); RED CELL DISTRIBUTION WIDTH 12.9 % (11.6-17.2); WHITE BLOOD COUNT 6.9 TH/MM3 (4.0-11.0)
[2017-08-15 09:29] LABS: BICARBONATE 25.9 MEQ/L (21.0-32.0); POTASSIUM 4.6 MEQ/L (3.5-5.1)
[2017-08-15] MEDS: PANTOPRAZOLE SOD 40 MG DELAYED RELEASE TAB PO SCH (09:59)
[2017-08-15] MEDS: METOCLOPRAMIDE HCL 10 MG/2 ML VIAL IVS SCH ×2 (10:00→21:40)
[2017-08-15 12:00] VITALS: BP 118/69; PULSE 73; RESP 17; TEMP 97.1; O2SAT 99
--- NOTE | 2017-08-15 13:10 | PD.WCN.NOT ---
Wound Consult Description: Consult for NEW OSTOMY TEACHING per Dr Paz Communicated with: Patient Patient son ALYSSA Olsen Additional Information: Patient seen on [facility] for ostomy assessment, teaching, and appliance assessment. Ostomy Type: Colostomy (Loop Colostomy) Surgeon: Preston Paz MD Date of Surgery: Aug 14, 2017 Complete: Starter kit (Consent obtained. ConvaTec kit sent out today to arrive to patient home by Monday at the latest.), Education materials, Rx (Script left on chart for 2 1/4" moldable appliances with open ended pouch), Other (Supplies ordered in size 2 3/4" for stoma size 1 3/4" and chetan in place for patient to go home with at discharge.) Educated patient on: Stoma appearance Stoma size Output Appliances available in moldable and cut to fit Open and closed pouches Cleansing peristomal skin with water Using stoma paste and Cavilon skin prep Allowing skin to dry prior to applying wafer Not using moisturizers or oils on the peristomal skin Where to obtain appliances When to change wafer When to empty pouch Diet Showering Additional information Patient seen on [facility] for ostomy assessment and teaching. Patient had son at bedside during teaching for reinforcement and education. Stoma is noted on the left side abdomen with 2 piece appliance intact. Loop Colostomy is measuring between 1 1/2"-1 3/4" round, moist, edematous, lumen noted in center of stoma not functioning at this time. Mucocutaneous junction is not visualized at this time due to appliance covering with chetan in place under loop stoma. Educational materials were left in patient room. Contents of kit were taken out and shown to patient. One and two piece appliances were shown and demonstrated to patient and patient son. Bessie Kwok [facility] Aug 15, 2017 13:10
--- NOTE | 2017-08-15 14:55 | HHI.FF ---
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 My clinical findings support the need for the requested home health care services because: Deconditioned w/ increased weakness Need for psychosocial assistance Infection w/ risk of complications I certify that my clinical findings support that this patient is homebound because: Post-op weakness Need for psychosocial assistance Preston Paz MD Aug 15, 2017 14:55
[2017-08-15 16:00] VITALS: BP 128/74; PULSE 69; RESP 17; TEMP 97; O2SAT 96
--- NOTE | 2017-08-15 17:09 | HHI.PR ---
Subjective Remarks POD #1 afebrile, VSS hoda po OOB dc peguero Objective - Vital Signs Date Time Temp Pulse Resp B/P (MAP) Pulse Ox O2 Delivery O2 Flow Rate FiO2 08/15/17 16:00 97.0 69 17 128/74 (92) 96 08/14/17 17:00 Room Air 08/14/17 16:15 2 Result Diagram: 08/15/17 0737 08/15/17 0737 Other Results PE alert Abd - soft, stoma swollen/pink A/P Assessment and Plan Imp: stable post-op OOB decr IVF Preston Paz MD Aug 15, 2017 17:09
[2017-08-15 20:00] VITALS: BP 137/77; PULSE 64; RESP 20; TEMP 97.8; O2SAT 100
[2017-08-15] MEDS: ALVIMOPAN 12 MG CAPSULE PO SCH (21:34)
[2017-08-16] VITALS: BP 146/93; PULSE 79; RESP 18; TEMP 97.7; O2SAT 97
[2017-08-16] MEDS: D5-NS + KCL 20 MEQ INJ 1,000 ML IV SCH ×2 (05:20→22:00)
[2017-08-16] MEDS: HEPARIN SODIUM - SQ 10,000 UNITS/ML VIAL SQ SCH ×2 (06:11→18:08)
[2017-08-16 07:49] VITALS: BP 183/89; PULSE 76; RESP 21; TEMP 98.2; O2SAT 96
[2017-08-16] MEDS: PANTOPRAZOLE SODIUM 40 MG VIAL IVP SCH (09:00)
--- NOTE | 2017-08-16 09:05 | MP ---
cc: EKTA WOMACK M.D. DATE OF SURGERY 08/14/17 PREOPERATIVE DIAGNOSIS 1. Obstructing rectal cancer, 2. History of breast cancer 3. History of lung metastasis. PROCEDURE Laparoscopic assisted loop sigmoid colostomy. POSTOPERATIVE DIAGNOSIS 1. Obstructing rectal cancer, 2. History of breast cancer 3. History of lung metastasis. SURGEON Dr. Alejandro Womack PROCEDURE IN DETAIL The patient was placed in the supine position. After adequate anesthesia sedation, her legs were placed in [place] stirrups and supported appropriately. Rectal exam did confirm a very large rectal tumor fairly fixed in the mid to upper rectum. Lumen was very small and barely palpable. The abdomen and perineum were then prepped with Betadine solution and draped in the usual sterile fashion. Initially, a small infraumbilical incision was made and a Veress needle inserted establishing pneumoperitoneum very easily. A 5 mm trocar was then placed under direct vision. Laparoscopic evaluation revealed the liver to be visibly normal. The uterus was absent. Small bowel appeared normal. Tumor below the perineal reflection was not easily visible. A second trocar was placed in the midline just in the suprapubic position. The sigmoid colon appeared to be relatively redundant and some of the adhesions to the left sidewall were taken down for full mobilization. At point at the apex of the loop was chosen for the diverting colostomy and a locking grasper placed on an epiploic. Next, a small transverse incision was made in the left lower quadrant taken down through the subcutaneous tissues opening up the rectus fascia, splitting the rectus muscles and entering the peritoneum under direct vision releasing the pneumoperitoneum. The chosen loop of sigmoid was identified and brought up through the stab wound without tension and with good blood supply creating an avascular plane in the mesentery and placing a colostomy bar. The two trocar sites were then closed with 3-0 Vicryl skin sutures in a subcuticular fashion. Steri-Strips and gauze applied. Finally, the colostomy was matured in the usual [place] fashion by creating an enterotomy and maturing both proximal and distal limbs with interrupted chromic catgut sutures around the circumference. At completion, the stoma did appear to be viable and was patent through the fascial level. Sterile colostomy appliance fitted over the new stoma. The patient tolerated the procedure quite well and was brought to recovery room in stable condition. Sponge and needle counts were correct at the end of the procedure. MD FERNANDO Vasquez/ /10:31 PM /8:59 AM
[2017-08-16] MEDS: PANTOPRAZOLE SOD 40 MG DELAYED RELEASE TAB PO SCH (09:55)
[2017-08-16] MEDS: ALVIMOPAN 12 MG CAPSULE PO SCH ×2 (09:55→20:41)
[2017-08-16] MEDS: METOCLOPRAMIDE HCL 10 MG/2 ML VIAL IVS SCH ×2 (09:56→20:41)
[2017-08-16 11:31] LABS: AUTOMATED NEUTROPHIL # 3.7 TH/MM3 (1.8-7.7); BASOPHIL % 0.8 % (0.0-2.0); EOSINOPHIL # 0.1 TH/MM3 (0-0.4); EOSINOPHIL % 1.2 % (0.0-4.0); HEMATOCRIT 38.7 % (35.0-46.0); HEMO FLAGS DIFF FINAL; LYMPH % 23.1 % (9.0-44.0); LYMPHOCYTE # 1.3 TH/MM3 (1.0-4.8); MEAN CELL VOLUME 94.1 FL (80.0-100.0); MEAN CORPUSCULAR HEMOGLOBIN 31.5 PG (27.0-34.0); MEAN CORPUSCULAR HGB CONC 33.4 % (32.0-36.0); MONO % 7.9 % (0.0-8.0); PLATELET COUNT 244 TH/MM3 (150-450); RED BLOOD COUNT 4.11 MIL/MM3 (4.00-5.30); RED CELL DISTRIBUTION WIDTH 13.2 % (11.6-17.2); WHITE BLOOD COUNT 5.6 TH/MM3 (4.0-11.0)
[2017-08-16 11:56] LABS: BICARBONATE 26.9 MEQ/L (21.0-32.0); POTASSIUM 3.8 MEQ/L (3.5-5.1)
[2017-08-16 12:00] VITALS: BP 188/89; PULSE 70; RESP 21; TEMP 98.5; O2SAT 97
[2017-08-16 13:26] VITALS: BP 148/80
--- NOTE | 2017-08-16 16:10 | PD.WCN.NOT ---
Wound Consult Description: Consult for NEW OSTOMY TEACHING per Dr Paz Communicated with: Patient Susan RN Recommendation: Continue emptying pouch Continue practicing opening and closing pouch Continue to read the educational material left in room for reinforcement of teaching. Additional Information: Patient seen on for ostomy assessment and teaching. Ostomy Type: Colostomy (Loop Colostomy) Surgeon: Preston Paz MD Date of Surgery: Aug 14, 2017 Complete: Starter kit (Consent obtained. ConvaTec kit sent out today to arrive to patient home by Monday at the latest.), Education materials, Rx (Script left on chart for 2 1/4" moldable appliances with open ended pouch), Other (Supplies ordered in size 2 3/4" for stoma size 1 3/4" and chetan in place for patient to go home with at discharge.) Educated patient on: The difference between a colostomy and an ileostomy. Purpose of the colon. Stoma appearance. Stoma size. There is no control over when the stoma functions. Peristomal skin care. When to empty the pouch. When to change the appliance. When to seek medical attention. Over the next 6-8 weeks the stoma will shrink in size, therefore it is important to measure the stoma with every appliance change. Different pouching systems. How to obtain appliances. Showering. Diet. Work and exercise. Traveling. Clothes. Help and support groups. Additional information Patient was assisted in emptying the pouch (drainage left in bathroom for I&O's) . Loop colostomy is noted to the left side mid abdomen with chetan in place. 2 piece cut to fit 4" appliance is intact and noted without leaks. Stoma is red, round, moist, functioning with mucus only, moderately protruding, mildly edematous. Patient states that she was up most of the night with gas pains. It was explained to her that ambulating will assist in getting that out. Patient is independently ambulating in room and hallways. Supplies were ordered for patient to go home with at discharge. Bessie Kwok [facility] Aug 16, 2017 16:10
[2017-08-16 20:00] VITALS: BP 170/81; PULSE 77; RESP 21; TEMP 98; O2SAT 96
[2017-08-16 21:24] VITALS: BP 161/84
[2017-08-17] VITALS: BP 134/84; PULSE 79; RESP 21; TEMP 97; O2SAT 97
[2017-08-17] MEDS: HEPARIN SODIUM - SQ 10,000 UNITS/ML VIAL SQ SCH (06:21)
--- NOTE | 2017-08-17 07:57 | HHI.PR ---
Subjective Remarks POD #3 afebrile, VSS hoda po OOB dc plans Objective - Vital Signs Date Time Temp Pulse Resp B/P (MAP) Pulse Ox O2 Delivery O2 Flow Rate FiO2 08/17/17 00:00 97.0 79 21 134/84 (101) 97 08/14/17 17:00 Room Air 08/14/17 16:15 2 Result Diagram: 08/16/17 1025 08/16/17 1025 Objective Remarks PE alert Abd - soft, stoma - flatus, less cramps A/P Assessment and Plan Imp: OOB decr IVF dc plans Preston Paz MD Aug 17, 2017 07:56
[2017-08-17 08:00] VITALS: BP 175/87; PULSE 64; RESP 19; TEMP 98.4; O2SAT 98
[2017-08-17] MEDS: PANTOPRAZOLE SODIUM 40 MG VIAL IVP SCH (08:55)
[2017-08-17] MEDS: ALVIMOPAN 12 MG CAPSULE PO SCH (08:55)
[2017-08-17] MEDS: PANTOPRAZOLE SOD 40 MG DELAYED RELEASE TAB PO SCH (08:55)
== END 2017-08-17 12:45 | disposition home health service (06) | DRG 330 ==
LOC: HSDI 11:11 → N07A 17:16
PROVIDERS: ADMIT Colon & Rectal Surgery; ATTEND Colon & Rectal Surgery
PROC: 0D1N0Z4 Bypass Sigmoid Colon to Cutaneous, Open Approach (ICD-10-PCS; principal; 2017-08-14 14:37)
DX: C20 Malignant neoplasm of rectum (principal); C78.00 Secondary malignant neoplasm of unspecified lung; C77.1 Secondary and unspecified malignant neoplasm of intrathoracic lymph nodes; F17.210 Nicotine dependence, cigarettes, uncomplicated; Z85.3 Personal history of malignant neoplasm of breast; Z90.11 Acquired absence of right breast and nipple
CPT/HCPCS: 80048; 80053; 85025; 86850; 86900; 86901; 93005; 94150; J0690; J1100; J1644; J2270; J2405; J2765; J3010; J3480; J7120

== ENCOUNTER 2018-03-13 11:15 | Inpatient (IN) ==
[2018-03-13] MEDS ORDERED: Chlorhexidine Gluconate 2% 1 Pack (2 Cloths) TOPICAL SCH (11:45)
[2018-03-13] MEDS ORDERED: Dextrose 5%/NaCl 0.9% Inj 1,000 ML IV.CONT SCH (11:45)
[2018-03-13] MEDS ORDERED: Metoprolol Tartrate 25 MG Tablet PO SCH (11:45)
[2018-03-13] MEDS ORDERED: Sodium Chlor 0.9% Inj 500 ML IV.SIG SCH (12:00)
[2018-03-13 12:38] LABS: Baso % (Auto) 0.6 % (0.0-2.0); Eos # (Auto) 0.1 th/mm3 (0.0-0.4); Eos % (Auto) 1.2 % (0.0-4.0); Hematocrit 45.2 % (35.0-46.0); Hemoglobin 14.9 gm/dL (11.6-15.3); Lymph # (Auto) 1.2 th/mm3 (1.0-4.8); Lymph % (Auto) 20.3 % (9.0-44.0); Mean Corpuscular HGB Conc 33.1 % (32.0-36.0); Mean Corpuscular Hemoglobin 32.8 pg (27.0-34.0); Mean Corpuscular Volume 99.1 fL (80.0-100.0); Mono # (Auto) 0.4 th/mm3 (0.0-0.9); Mono % (Auto) 6.6 % (0.0-8.0); Neut # (Auto) 4.2 th/mm3 (1.8-7.7); Neut % (Auto) 71.3 % (16.0-70.0); Platelet Count 204 th/mm3 (150-450); Red Blood Count 4.56 mil/mm3 (4.00-5.30); Red Cell Distribution Width 14.4 % (11.6-17.2); White Blood Count 5.9 th/mm3 (4.0-11.0)
[2018-03-13 12:56] LABS: Prothrombin Time 10.2 sec (9.8-11.6)
[2018-03-13 13:05] LABS: Albumin 4.1 g/dL (3.4-5.0); Anion Gap 18 meq/L (5-15); Aspartate Aminotransferase 27 U/L (15-37); Blood Urea Nitrogen 11 mg/dL (7-18); Calcium 9.4 mg/dL (8.5-10.1); Carbon Dioxide 17.4 meq/L (21.0-32.0); Chloride 99 meq/L (98-107); Glomerular Filtration Rate Greater Than 89 mL/min (>89); Glucose,Random 97 mg/dL (74-106); Potassium 3.7 meq/L (3.5-5.1); Sodium 134 meq/L (136-145)
[2018-03-13 13:10] LABS: Alanine Aminotransferase 28 U/L (10-53); Alkaline Phosphatase 74 U/L (45-117); Total Protein 8.3 g/dL (6.4-8.2)
--- NOTE | 2018-03-13 13:45 | P.HPUP ---
The Pre-Admit History and Physical Examination regarding the above named patient was reviewed (including, but not limited to, vital signs, heart, lungs, co-morbid conditions), and upon re-examination it is noted that: the patient's condition has not significantly changed since the last examination.
[2018-03-13] MEDS ORDERED: Bupivacaine PF 0.5% Inj 30 ML Vial ONE (14:01)
[2018-03-13] MEDS ORDERED: Succinylcholine Inj 100 MG/5 ML Syringe IV.PUSH ONE (14:51)
[2018-03-13] MEDS ORDERED: Lidocaine PF 1% Inj 5 ML Syringe INFILTRATN ONE (14:51)
[2018-03-13] MEDS ORDERED: Phenylephrine/NS 1000 MCG/10ML Syringe IV.PUSH ONE (14:51)
[2018-03-13] MEDS ORDERED: Neostigmine Inj 5 MG/5 ML Syringe IV.PUSH ONE (14:51)
[2018-03-13] MEDS ORDERED: Glycopyrrolate Inj 1 MG/5 ML Syringe IV.PUSH ONE (14:51)
[2018-03-13] MEDS ORDERED: Potassium Chlor 20 mEq Premix 20 MEQ/100 ML PIGGYBACK IV.SIG PRN (16:15)
[2018-03-13] MEDS ORDERED: Potassium Chlor 40 mEq Premix 40 MEQ/100 ML PIGGYBACK IV.SIG PRN (16:15)
[2018-03-13] MEDS ORDERED: fentaNYL Citrate Inj 100 MCG/2 ML Ampul ONE (16:28)
[2018-03-13] MEDS: KCL 20 mEq/D5W/NaCl 0.9% Inj 1,000 ML IV.CONT SCH (16:43)
[2018-03-13] MEDS ORDERED: KCL 20 mEq/D5W/NaCl 0.9% Inj 1,000 ML ONE (16:43)
[2018-03-13] MEDS: Ketorolac Inj 30 MG/ML (IVP) Vial IV.PUSH PRN (20:52)
[2018-03-14] MEDS: Ketorolac Inj 30 MG/ML (IVP) Vial IV.PUSH PRN ×4 (01:40→23:29)
[2018-03-14 03:58] LABS: Baso % (Auto) 0.1 % (0.0-2.0); Hematocrit 42.9 % (35.0-46.0); Hemoglobin 14.3 gm/dL (11.6-15.3); Lymph # (Auto) 0.3 th/mm3 (1.0-4.8); Lymph % (Auto) 2.7 % (9.0-44.0); Mean Corpuscular HGB Conc 33.2 % (32.0-36.0); Mean Corpuscular Hemoglobin 32.8 pg (27.0-34.0); Mean Corpuscular Volume 98.8 fL (80.0-100.0); Mean Platelet Volume 7.9 fL (7.0-11.0); Mono # (Auto) 0.3 th/mm3 (0.0-0.9); Neut # (Auto) 9.9 th/mm3 (1.8-7.7); Neut % (Auto) 94.2 % (16.0-70.0); Platelet Count 178 th/mm3 (150-450); Red Blood Count 4.34 mil/mm3 (4.00-5.30); Red Cell Distribution Width 14.2 % (11.6-17.2); White Blood Count 10.5 th/mm3 (4.0-11.0)
[2018-03-14 04:24] LABS: Anion Gap 13 meq/L (5-15); Blood Urea Nitrogen 6 mg/dL (7-18); Calcium 8.1 mg/dL (8.5-10.1); Carbon Dioxide 17.4 meq/L (21.0-32.0); Chloride 107 meq/L (98-107); Glomerular Filtration Rate Greater Than 89 mL/min (>89); Glucose,Random 214 mg/dL (74-106); Sodium 137 meq/L (136-145)
[2018-03-14] MEDS: Pantoprazole Inj 40 MG Vial IV.PUSH SCH (09:28)
[2018-03-14] MEDS: amLODIPine 5 MG Tablet PO SCH (09:30)
[2018-03-14] MEDS: Anastrozole 1 MG Tablet PO SCH (09:30)
--- NOTE | 2018-03-14 10:29 | P.PNCS ---
Subjective Interval history: C/R Surg POD#1 afebrile, VSS UO good YECENIA min Objective Objective Remarks: PE alert abd - soft, flat, wound dry, YECENIA serous Assessment and Plan - Plan Imp: stable post-op OOB decr IVF tx to floor
[2018-03-14] MEDS: KCL 20 mEq/D5W/NaCl 0.9% Inj 1,000 ML IV.CONT SCH (17:25)
[2018-03-15 05:22] LABS: Baso % (Auto) 0.3 % (0.0-2.0); Eos % (Auto) 0.3 % (0.0-4.0); Hematocrit 41.1 % (35.0-46.0); Hemoglobin 13.7 gm/dL (11.6-15.3); Lymph % (Auto) 10.3 % (9.0-44.0); Mean Corpuscular HGB Conc 33.3 % (32.0-36.0); Mean Corpuscular Hemoglobin 33.1 pg (27.0-34.0); Mean Corpuscular Volume 99.4 fL (80.0-100.0); Mean Platelet Volume 8.2 fL (7.0-11.0); Mono # (Auto) 0.9 th/mm3 (0.0-0.9); Mono % (Auto) 8.7 % (0.0-8.0); Neut # (Auto) 7.9 th/mm3 (1.8-7.7); Neut % (Auto) 80.4 % (16.0-70.0); Platelet Count 166 th/mm3 (150-450); Red Blood Count 4.13 mil/mm3 (4.00-5.30); Red Cell Distribution Width 14.4 % (11.6-17.2); White Blood Count 9.9 th/mm3 (4.0-11.0)
[2018-03-15] MEDS: KCL 20 mEq/D5W/NaCl 0.9% Inj 1,000 ML IV.CONT SCH (05:23)
[2018-03-15 05:36] LABS: Anion Gap 8 meq/L (5-15); Blood Urea Nitrogen 2 mg/dL (7-18); Calcium 8.2 mg/dL (8.5-10.1); Carbon Dioxide 23.9 meq/L (21.0-32.0); Chloride 105 meq/L (98-107); Glomerular Filtration Rate Greater Than 89 mL/min (>89); Glucose,Random 140 mg/dL (74-106); Potassium 3.3 meq/L (3.5-5.1); Sodium 137 meq/L (136-145)
--- NOTE | 2018-03-15 08:03 | P.PNCS ---
Subjective Interval history: C/R Surg POD # 2 afebrile, VSS UO good YECENIA less Objective Result Diagrams: 03/15/18 04:19 03/15/18 04:19 Objective Remarks: PE alert Abd - soft, flat, wound dry Assessment and Plan - Plan Imp: start PO OOB decr IVF tx to floor
[2018-03-15] MEDS: Anastrozole 1 MG Tablet PO SCH (09:11)
[2018-03-15] MEDS: amLODIPine 5 MG Tablet PO SCH (09:12)
[2018-03-15] MEDS: Pantoprazole Inj 40 MG Vial IV.PUSH SCH (09:12)
[2018-03-15] MEDS: Ketorolac Inj 30 MG/ML (IVP) Vial IV.PUSH PRN (20:53)
[2018-03-16] MEDS: Pantoprazole Inj 40 MG Vial IV.PUSH SCH (08:46)
[2018-03-16] MEDS: amLODIPine 5 MG Tablet PO SCH (08:47)
[2018-03-16] MEDS: Anastrozole 1 MG Tablet PO SCH (08:47)
[2018-03-16] MEDS: KCL 20 mEq/D5W/NaCl 0.9% Inj 1,000 ML IV.CONT SCH ×2 (09:25→15:07)
--- NOTE | 2018-03-16 16:53 | P.PNCS ---
Subjective Interval history: C/R Surg POD #3 afebrile, VSS UO good hoda PO Objective Result Diagrams: 03/15/18 04:19 03/15/18 04:19 Objective Remarks: PE alert Abd - soft, rounded, wound clean Assessment and Plan - Plan Imp: start PO OOB decr IVF tx to floor dc telemetry
[2018-03-17] MEDS: KCL 20 mEq/D5W/NaCl 0.9% Inj 1,000 ML IV.CONT SCH (05:38)
[2018-03-17] MEDS: Pantoprazole Inj 40 MG Vial IV.PUSH SCH (10:02)
[2018-03-17] MEDS: Anastrozole 1 MG Tablet PO SCH (10:02)
[2018-03-17] MEDS: amLODIPine 5 MG Tablet PO SCH (10:03)
--- NOTE | 2018-03-21 13:27 | MP ---
cc: Preston Paz MD, Andrew H MD Deveras,Yina Phan MD DATE OF OPERATION: 03/13/2018 PREOPERATIVE DIAGNOSIS: Obstructing carcinoma of the rectosigmoid, status post chemotherapy. PROCEDURE: Exploratory laparotomy with lysis of adhesions, proctosigmoidectomy, and low pelvic anastomosis, closure of colostomy. POSTOPERATIVE DIAGNOSIS: Obstructing carcinoma of the rectosigmoid, status post chemotherapy. SURGEON: Preston Paz MD. SALES RECRUITING COORDINATOR: Dr. Sandro Tamayo. PROCEDURE: The patient was placed in the supine position. After adequate general anesthesia, her legs were placed in the universal stirrups and supported appropriately. The abdomen and perineum were then prepped with Betadine solution and draped in the usual sterile fashion. With Dr. Tamayo's assistance, the abdomen was opened through a midline incision. Exploration revealed inflammatory stricture at the site of her previously known cancer of the rectosigmoid. This was distal to her diverting colostomy. The bowel proximal to the colostomy was palpated and felt to be pretty unremarkable. The uterus and ovaries were normal for the patient's age. Liver had no palpable masses. The gallbladder was unremarkable. The small bowel was run from ligament of Treitz down to the ileocecal valve and felt to be normal. Great vessels were of normal caliber and soft. First, the sigmoid colon was mobilized medially by dividing along the white line of Toldt. The left ureteral stent was palpated and easily preserved. Dissection then proceeded up the left gutter, taking down the colostomy from its abdominal wall attachments and returning it back into the abdomen. The left colon was then mobilized off the retroperitoneum up toward the region of the splenic flexure, entering the lesser sac and taking the gastrocolic omentum off the transverse colon for full left mobilization. The right retroperitoneal space was then opened and the bowel dissected off the presacral fascia down toward the pelvic floor. The pedicle for the superior hemorrhoidal vessels identified and divided between Kellys, obtaining hemostasis with Vicryl ties. A point below the remaining cancer was chosen in the proximal rectum and the mesorectum taken with electrocautery and Vicryl ties as needed for hemostasis. The bowel was then divided between a pursestring suture device and a Tracy clamp. The bowel was then sized to reach the rectal pouch without tension and with good blood supply dividing the marginal artery at the appropriate point. The bowel was then divided between a pursestring suture device and a Tracy clamp above the area where her diverting colostomy had been made. The end of the bowel was sized to accept an EEA stapling anvil and this was secured with the pursestring suture. Dr. Tamayo inserted the EEA stapling instrument transanally under direct vision. It was brought up through the end of the rectal pouch and the pursestring suture tied. Stapler was then reassembled and the bowel aligned properly. The stapled closed and fired. Upon withdrawal, 2 complete donuts of tissue were seen. Gentle insufflation did confirm an air tight anastomosis. The abdomen was then irrigated copiously with normal saline. Adequate hemostasis achieved. A Tenzin-Fraser drain placed down into the pelvis and brought up through a stab wound in the right lower quadrant, secured to the skin with a nylon suture. The midline incision was closed anatomically using #1 PDS suture to reapproximate the midline fascia. The colostomy site was closed in 2 layers anatomically using #1 PDS sutures to reapproximate the respective fascial layers. The subcutaneous tissues were irrigated copiously and the skin closed with a row of surgical myrtle at both sites. The wound area washed with normal saline and dried, sterile dressing of Telfa and gauze applied. The patient tolerated the procedure quite well and was brought to the recovery room in stable condition. Sponge and needle counts were correct at the end of the procedure. MD ISHA Asencio/juni/rozina , 12:06 PM , 12:17 PM
--- NOTE | 2018-04-08 06:09 | MD ---
cc: Preston Paz MD, Andrew H MD Deveras,Yina Phan MD DATE OF DISCHARGE: 03/17/2018 ADMITTING DIAGNOSIS: History of sigmoid carcinoma with mediastinal metastasis, previous diverting colostomy. PROCEDURES: On 03/13/2018, exploratory laparotomy with lysis of adhesions, proctosigmoidectomy, low pelvic anastomosis and closure of colostomy. DISCHARGE DIAGNOSIS: Carcinoma of the sigmoid colon, moderately differentiated, T3 N0 MX. HISTORY OF PRESENT ILLNESS: Ms. Rodney is a 57-year-old female who has been treated for breast cancer. During staging, she was found to have mediastinal adenopathy, which was biopsied, identifying a cancer of the colon. She was subsequently found to have a highly obstructing cancer of the sigmoid colon. She underwent a diverting colostomy and postoperatively has been treated with aggressive chemotherapy. The mediastinal adenopathy has shown marked progression and has disappeared by recent PET scanning. She presents at this time for definitive surgical resection of the sigmoid cancer. Recent evaluation shows the cancer to have regressed significantly, but stricture formation has replaced most of the tumor. Please see her admitting history and physical for a more complete past medical and surgical history. PERTINENT PHYSICAL: Very pleasant, thin female in no acute distress. Abdomen was soft and benign. Diverting colostomy was pink and patent. No real tenderness or masses appreciated. Anal inspection revealed benign canal. Digital exam revealed good tone. No masses or tenderness and no blood on the finger. HOSPITAL COURSE: After admission, the patient was taken to the OR on the 03/13/2018. At which point, she underwent an exploratory laparotomy with lysis of adhesions, proctosigmoidectomy and low pelvic anastomosis with closure of her colostomy. The liver had no palpable masses. She did have a quite significant regression of the tumor with only really a colonic stricture remaining at the site of the previous tumor. She tolerated the procedure well and was initially stabilized in the progressive care unit. Her bowel function returned quite promptly and her diet was advanced accordingly. She continued to increase her oral intake, was able to ambulate with minimal assistance. Respiratory therapy prevented atelectasis. The patient was eating well enough to be considered for discharge home on 03/17/2018. PATHOLOGY: Final pathology report revealed moderately differentiated adenocarcinoma of the sigmoid colon penetrating through the muscularis propria. All margins were clear. No positive nodes were seen examining 13 nodes. Final stage was T3 N0 MX. DISCHARGE INSTRUCTIONS: The patient was discharged eating a regular diet. She was encouraged to ambulate daily, avoiding any heavy lifting or straining. All preop medications were to be resumed. The patient was given a prescription for pain medication to take for her acute pain after surgery. She will be seen in the office in 1 week's time for routine followup. The patient will be followed again by Dr. Zaragoza for possible additional adjuvant chemotherapy if necessary. Any problems prior to the scheduled office visit, the patient was instructed to call the office for more acute care. MD ISHA Asencio/grayson , 10:04 PM , 10:15 PM
== END 2018-03-17 14:52 | disposition home or self-care (01) ==
LOC: HSDC 11:15 → EDSTATUS 14:00 → HSDI 16:47 → HCPC 03-14 01:33 → N07 03-16 15:42
PROVIDERS: ADMIT Colon & Rectal Surgery; ATTEND Colon & Rectal Surgery